=== PATIENT | female | born 1990 | race Caucasian/White ===

== ENCOUNTER 2021-11-22 16:56 | Inpatient (IN) | payer OTHER ==
[2021-11-22] MEDS ORDERED: diazePAM CARPU-JECT 10 MG/2 ML DISP.SYRIN IVPUSH ONE (17:54)
[2021-11-22] MEDS ORDERED: ACETAMINOPHEN 1000 MG/100 ML BAG IVPB ONE (17:58)
[2021-11-22] MEDS ORDERED: ONDANSETRON 4 MG/2 ML VIAL IVPUSH ONE (17:58)
[2021-11-22] MEDS ORDERED: LACTATED RINGERS SOLUTION 1000 ML INFUS.BAG IV ONE (18:11)
[2021-11-22] MEDS ORDERED: diazePAM CARPU-JECT 10 MG/2 ML DISP.SYRIN ONE (18:14)
[2021-11-22] MEDS ORDERED: ONDANSETRON 4 MG/2 ML VIAL ONE (18:15)
[2021-11-22] MEDS ORDERED: ACETAMINOPHEN INJECTION 100 ML IVPB ONE (18:15)
[2021-11-22] MEDS ORDERED: TRIMETHOBENZAMIDE HCL 200MG/2ML INJ IM ONE ×3 (18:35→21:16)
[2021-11-22] MEDS ORDERED: chlordiazePOXIDE HCL 25 MG CAPSULE PO ONE (19:20)
[2021-11-22] MEDS ORDERED: chlordiazePOXIDE HCL 25 MG CAPSULE ONE (19:32)
[2021-11-22 20:11] LABS: BASO % 0.3 % (0-2.0); EOS % 0.1 % (0-4.5); HEMATOCRIT 41.6 % (32.4-45.2); HEMOGLOBIN 14.1 GM/dL (10.7-15.3); LYMPH % 5.4 % (8-40); MCH 34.1 pg (25.7-33.7); MCHC 33.8 g/dl (32.0-36.0); MONO % 9.3 % (3.8-10.2); NEUT % 84.9 % (42.8-82.8); PLATELET COUNT 107 10^3/uL (134-434); RBC 4.12 M/mm3 (3.60-5.2); RDW 13.2 % (11.6-15.6); WHITE BLOOD COUNT 7.7 K/mm3 (4.0-10.0)
[2021-11-22 20:29] LABS: CHLORIDE 92 mmol/L (98-107); SODIUM 135 mmol/L (136-145)
[2021-11-22 20:31] LABS: CALCIUM 9.4 mg/dL (8.5-10.1)
[2021-11-22 20:32] LABS: ALBUMIN 4.8 g/dl (3.4-5.0); BLOOD UREA NITROGEN 9.4 mg/dL (7-18); CO2 28 mmol/L (21-32); GLUCOSE,RANDOM 84 mg/dL (74-106); MAGNESIUM 1.4 mg/dL (1.8-2.4)
[2021-11-22 20:35] LABS: CREATININE 0.6 mg/dL (0.55-1.3); SGOT/AST 187 U/L (15-37); SGPT/ALT 158 U/L (13-61)
[2021-11-22 20:37] LABS: BILIRUBIN,TOTAL 1.3 mg/dL (0.2-1); TOT PROT 8.8 g/dl (6.4-8.2)
[2021-11-22 20:38] LABS: ALK PHOS 106 U/L (45-117)
[2021-11-22 20:56] LABS: ANION GAP 15 MMOL/L (8-16); PHOSPHOROUS 1.1 mg/dL (2.5-4.9)
[2021-11-22] MEDS ORDERED: MAGNESIUM SULF 50% (8.12 MEQ/2 ML-1 GM VIAL) IVPB ONE (20:56)
[2021-11-22] MEDS ORDERED: POTASSIUM CHLORIDE TABS 10 MEQ TABLET.ER (FP) PO ONE (20:59)
[2021-11-22] MEDS ORDERED: NAPH,MB-DB/K PH,MBDB POWDER PACKET PO ONE (20:59)
[2021-11-22] MEDS ORDERED: MAGNESIUM SULFATE IN WATER 2 GM/50 ML IVPB IVPB ONE (21:04)
[2021-11-22 21:13] LABS: COCAINE, UR NEGATIVE (NEGATIVE)
[2021-11-22] MEDS ORDERED: POTASSIUM CHLORIDE TABS 10 MEQ TABLET.ER (FP) ONE (21:13)
[2021-11-22 21:14] LABS: METHADONE, UR NEGATIVE (NEGATIVE); PHENCYCLIDINE,URINE NEGATIVE (NEGATIVE); URINE BARBITURATES NEGATIVE (NEGATIVE)
[2021-11-22] MEDS ORDERED: NAPH,MB-DB/K PH,MBDB POWDER PACKET ONE (21:14)
[2021-11-22 21:18] LABS: OPIATES, URI NEGATIVE (NEGATIVE); URINE AMPHETAMINES NEGATIVE (NEGATIVE); URINE BENZODIAZEPINES POSITIVE (NEGATIVE)
[2021-11-22] MEDS: KCL 10 MEQ IVPB 10 MEQ/100 ML INFUS.BAG IVPB SCH ×3 (21:24→23:32)
[2021-11-22] MEDS ORDERED: KCL 10 MEQ IVPB 10 MEQ/100 ML INFUS.BAG IVPB ONE ×3 (21:25→23:26)
[2021-11-22] MEDS ORDERED: LORazepam 1 MG TABLET PO PRN (21:39)
[2021-11-22] MEDS ORDERED: FOLIC ACID INJECTION - 1 MG, THIAMINE HCL 100 MG in SODIUM CHLORIDE 998.8 ML IVPB ONE (21:39)
[2021-11-22] MEDS ORDERED: POTASSIUM PHOSPHATE 30 MM in DEXTROSE 5%-WATER - 500 ML IVPB ONE (21:50)
[2021-11-22] MEDS ORDERED: MULTIVITAMINS (DAILY MVI) TABLET (FP) PO ONE (22:30)
[2021-11-22] MEDS: LORazepam 1 MG TABLET PO SCH (23:24)
[2021-11-22] MEDS ORDERED: MULTIVITAMINS (DAILY MVI) TABLET (FP) ONE (23:26)
[2021-11-22] MEDS ORDERED: LORazepam 1 MG TABLET ONE (23:26)
[2021-11-23 01:36] LABS: BLOOD UREA NITROGEN 6.5 mg/dL (7-18); CALCIUM 8.7 mg/dL (8.5-10.1)
[2021-11-23 01:37] LABS: ALBUMIN 4.3 g/dl (3.4-5.0); MAGNESIUM 2.6 mg/dL (1.8-2.4)
[2021-11-23 01:40] LABS: CREATININE 0.4 mg/dL (0.55-1.3); PHOSPHOROUS 2.4 mg/dL (2.5-4.9)
[2021-11-23 01:41] LABS: BILIRUBIN,TOTAL 1.1 mg/dL (0.2-1)
[2021-11-23 01:57] VITALS: BMI 23.6
[2021-11-23 04:23] LABS: EPI CELLS 4 /uL (0-25.1); HYALINE CASTS 0 /uL (0-3.1); PH,URINE 7.5 (5.0-8.0); URINE APPEARANCE CLEAR; URINE BACTERIA 62 /uL (0-1359); URINE BILIRUBIN NEGATIVE (NEGATIVE); URINE COLOR YELLOW; URINE GLUCOSE (UA) NEGATIVE (NEGATIVE); URINE KETONE 1+ (NEGATIVE); URINE LEUK ESTERASE NEGATIVE (NEGATIVE); URINE NITRITE NEGATIVE (NEGATIVE); URINE PROTEIN 1+ (NEGATIVE); URINE RBC 3 /uL (0-23.9); URINE WBC 4 /uL (0-25.8)
[2021-11-23] MEDS: LORazepam 1 MG TABLET PO SCH ×4 (05:22→22:34)
[2021-11-23] MEDS ORDERED: POTASSIUM CHLORIDE TABS 20 MEQ TABLET.ER (FP) PO ONE ×2 (07:27→14:11)
[2021-11-23] MEDS ORDERED: POTASSIUM PHOSPHATE 30 MM in SODIUM CHLORIDE 250 ML IVPB ONE (07:28)
[2021-11-23] MEDS ORDERED: MAGNESIUM SULF 50% (8.12 MEQ/2 ML-1 GM VIAL) IVPB ONE (07:28)
[2021-11-23 08:12] LABS: BASO % 0.5 % (0-2.0); EOS % 0.9 % (0-4.5); HEMATOCRIT 37.8 % (32.4-45.2); HEMOGLOBIN 12.9 GM/dL (10.7-15.3); LYMPH % 18.4 % (8-40); MCH 34.6 pg (25.7-33.7); MCHC 34.2 g/dl (32.0-36.0); MEAN CELL VOLUME 101.1 fl (80-96); MONO % 13.8 % (3.8-10.2); NEUT % 66.4 % (42.8-82.8); PLATELET COUNT 94 10^3/uL (134-434); RBC 3.74 M/mm3 (3.60-5.2); WHITE BLOOD COUNT 4.5 K/mm3 (4.0-10.0)
[2021-11-23 08:39] LABS: CALCIUM 8.1 mg/dL (8.5-10.1)
[2021-11-23 08:40] LABS: ALBUMIN 3.6 g/dl (3.4-5.0); BLOOD UREA NITROGEN 4.6 mg/dL (7-18); MAGNESIUM 2.3 mg/dL (1.8-2.4)
[2021-11-23 08:42] LABS: PHOSPHOROUS 3.1 mg/dL (2.5-4.9)
[2021-11-23 08:43] LABS: CREATININE 0.3 mg/dL (0.55-1.3)
[2021-11-23 08:44] LABS: TOT PROT 6.9 g/dl (6.4-8.2)
[2021-11-23] MEDS ORDERED: ENOXAPARIN NA (PORCINE) 40 MG/0.4 ML DISP.SYRIN SQ SCH (10:00)
[2021-11-23] MEDS ORDERED: THIAMINE HCL 200 MG/2 ML VIAL IVPB SCH (10:00)
[2021-11-23] MEDS: FOLIC ACID 5 MG/1 ML IVPB SCH ×2 (12:17→15:53)
[2021-11-23 18:09] VITALS: RESP 18
[2021-11-23 20:47] LABS: CALCIUM 8.5 mg/dL (8.5-10.1)
[2021-11-23 20:50] LABS: CREATININE 0.4 mg/dL (0.55-1.3)
[2021-11-24] MEDS ORDERED: LORazepam 1 MG TABLET PO SCH (05:00)
[2021-11-24 08:02] LABS: HEMATOCRIT 38.6 % (32.4-45.2); HEMOGLOBIN 13.1 GM/dL (10.7-15.3); MCH 34.6 pg (25.7-33.7); MCHC 33.8 g/dl (32.0-36.0); MEAN CELL VOLUME 102.3 fl (80-96); MEAN PLT VOLUME 9.3 fl (7.5-11.1); PLATELET COUNT 119 10^3/uL (134-434); RBC 3.77 M/mm3 (3.60-5.2); WHITE BLOOD COUNT 5.4 K/mm3 (4.0-10.0)
[2021-11-24 08:22] LABS: ALBUMIN 4.1 g/dl (3.4-5.0); BLOOD UREA NITROGEN 3.4 mg/dL (7-18); PHOSPHOROUS 1.9 mg/dL (2.5-4.9)
[2021-11-24 08:23] LABS: TOT PROT 7.5 g/dl (6.4-8.2)
[2021-11-24 08:24] LABS: CALCIUM 9.1 mg/dL (8.5-10.1)
[2021-11-24 08:25] LABS: CREATININE 0.4 mg/dL (0.55-1.3)
[2021-11-24 09:44] VITALS: BP 145/109; PULSE 106; TEMP 98.9
[2021-11-24] MEDS ORDERED: cloNIDine HCL 0.1 MG TABLET PO SCH (10:00)
[2021-11-25] MEDS ORDERED: LORazepam 0.5 MG TABLET PO PRN
[2021-11-25] MEDS ORDERED: LORazepam 0.5 MG TABLET PO SCH (05:00)
[2021-11-26] MEDS ORDERED: LORazepam 0.5 MG TABLET PO ONE (05:00)
== END 2021-11-24 09:30 | disposition left against medical advice (07) | DRG 53 ==
LOC: JER 16:56 → JERBED 18:15 → J2W 11-23 00:33
PROVIDERS: ADMIT Internal Medicine; ATTEND Internal Medicine
DX: R56.9 Unspecified convulsions (principal); F10.230 Alcohol dependence with withdrawal, uncomplicated; E83.42 Hypomagnesemia; E87.6 Hypokalemia; E83.39 Other disorders of phosphorus metabolism; K76.0 Fatty (change of) liver, not elsewhere classified; Z53.29 Procedure and treatment not carried out because of patient's decision for other reasons
CPT/HCPCS: 0241U-QW; 36415; 71045-TC-FY; 76705-TC; 80048; 80053; 80307; 81003; 82962; 83605; 83690; 83735; 84100; 84443; 84703; 85025; 85027; 87040; 87086; 87186; 93005; 93010; 99285-25

== ENCOUNTER 2022-04-01 12:23 | Emergency (ER) | payer OTHER ==
[2022-04-01 12:27] VITALS: TEMP 98.9; BMI 23.6
[2022-04-01] MEDS ORDERED: THIAMINE HCL 200 MG/2 ML VIAL IVPB ONE (13:11)
[2022-04-01] MEDS ORDERED: LACTATED RINGERS SOLUTION 1,000 ML/1,000 ML INFUS.BAG IV SCH (13:15)
[2022-04-01] MEDS ORDERED: THIAMINE HCL 200 MG/2 ML VIAL ONE (13:17)
[2022-04-01] MEDS ORDERED: chlordiazePOXIDE HCL 25 MG CAPSULE PO ONE ×2 (13:26→14:31)
[2022-04-01] MEDS ORDERED: chlordiazePOXIDE HCL 25 MG CAPSULE ONE ×2 (13:42→14:41)
[2022-04-01 13:52] LABS: BASO % 1.4 % (0-2.0); EOS % 0.1 % (0-4.5); HEMATOCRIT 37.9 % (32.4-45.2); HEMOGLOBIN 13.1 GM/dL (10.7-15.3); LYMPH % 9.7 % (8-40); MCH 34.2 pg (25.7-33.7); MCHC 34.4 g/dl (32.0-36.0); MEAN CELL VOLUME 99.2 fl (80-96); MONO % 10.7 % (3.8-10.2); NEUT % 78.1 % (42.8-82.8); PLATELET COUNT 137 10^3/uL (134-434); RBC 3.82 M/mm3 (3.60-5.2); RDW 14.1 % (11.6-15.6)
[2022-04-01 14:00] LABS: INR 1.03 (0.83-1.09); PROTHROMBIN TIME (PATIENT) 11.9 SEC (9.7-13.0)
[2022-04-01 14:02] LABS: ACTIVATED PTT 36.4 SECONDS (25.2-36.5)
[2022-04-01 14:08] LABS: PHENCYCLIDINE,URINE NEGATIVE (NEGATIVE)
[2022-04-01 14:09] LABS: COCAINE, UR NEGATIVE (NEGATIVE); METHADONE, UR NEGATIVE (NEGATIVE); OPIATES, URI NEGATIVE (NEGATIVE); URINE BARBITURATES NEGATIVE (NEGATIVE)
[2022-04-01 14:14] LABS: ALBUMIN 3.9 g/dl (3.4-5.0); BLOOD UREA NITROGEN 8.4 mg/dL (7-18); CALCIUM 8.4 mg/dL (8.5-10.1); MAGNESIUM 1.4 mg/dL (1.8-2.4)
[2022-04-01 14:17] LABS: CREATININE 0.4 mg/dL (0.55-1.3); PHOSPHOROUS 2.7 mg/dL (2.5-4.9)
[2022-04-01 14:19] LABS: BILIRUBIN,TOTAL 0.7 mg/dL (0.2-1); TOT PROT 7.8 g/dl (6.4-8.2); URINE AMPHETAMINES NEGATIVE (NEGATIVE); URINE BENZODIAZEPINES POSITIVE (NEGATIVE)
[2022-04-01] MEDS ORDERED: MAGNESIUM SULFATE IN WATER 2 GM/50 ML IVPB IVPB ONE ×2 (14:41→15:12)
[2022-04-01 16:41] VITALS: BP 143/86; PULSE 85; RESP 20
== END 2022-04-01 16:42 | disposition home or self-care (01) ==
LOC: JER 12:23
PROC: 3E033GC Introduction of Other Therapeutic Substance into Peripheral Vein, Percutaneous Approach (ICD-10-PCS; principal; 2022-04-01)
DX: F10.230 Alcohol dependence with withdrawal, uncomplicated (principal); Z20.822 Contact with and (suspected) exposure to COVID-19; Y90.9 Presence of alcohol in blood, level not specified
CPT/HCPCS: 0241U-QW; 36415; 80053; 80307; 83735; 84100; 84703; 85025; 85610; 85730; 93005; 93010; 99284-25

== ENCOUNTER 2022-04-01 16:59 | Inpatient (IN) | payer OTHER ==
[2022-04-01 17:32] VITALS: BMI 23.6
[2022-04-01] MEDS ORDERED: IBUPROFEN 600 MG TABLET (FP) PO PRN (18:15)
[2022-04-01] MEDS ORDERED: POLYETHYLENE GLYCOL (HEALTHYLAX) 3350 17 GM PACKET PO PRN (18:15)
[2022-04-01] MEDS ORDERED: ONDANSETRON *ODT* 4 MG TABLET SL PRN (18:15)
[2022-04-01] MEDS ORDERED: NICOTINE 10 MG CARTRIDGE (INHALER) IH PRN (18:15)
[2022-04-01] MEDS ORDERED: MAGNESIUM HYDROX 2400MG/30ML ORAL SUSPENSION 30 ML CUP PO PRN (18:15)
[2022-04-01] MEDS ORDERED: LOPERAMIDE HCL 2 MG CAPSULE PO PRN (18:15)
[2022-04-01] MEDS ORDERED: BISMUTH SUBSALICYLATE 524 MG/30 ML PO PRN (18:15)
[2022-04-01] MEDS ORDERED: NALOXONE HCL (KLOXXADO) 8 MG SPRAY NS PRN (18:15)
[2022-04-01] MEDS ORDERED: DICYCLOMINE HCL 10 MG CAPSULE PO PRN (18:15)
[2022-04-01] MEDS ORDERED: BENZOCAINE/MENTHOL (CHLORASEPTIC ) LOZENGE MM PRN (18:15)
[2022-04-01] MEDS ORDERED: MAG HYDROX/AL HYDROX/SIMETH 30 ML UNIT-DOSE CUP PO PRN (18:15)
[2022-04-01] MEDS ORDERED: ACETAMINOPHEN 325 MG TABLET (FP) PO PRN ×2 (18:15)
[2022-04-01] MEDS ORDERED: IBUPROFEN 400 MG TABLET (FP) PO PRN (18:15)
[2022-04-01] MEDS ORDERED: cloNIDine HCL 0.1 MG TABLET PO ONE (18:21)
[2022-04-01] MEDS ORDERED: LORazepam 1 MG TABLET ONE (18:27)
[2022-04-01] MEDS ORDERED: cloNIDine HCL 0.1 MG TABLET ONE (18:28)
[2022-04-01] MEDS: LORazepam 1 MG TABLET PO PRN (18:33)
[2022-04-01] MEDS: METHOCARBAMOL 500 MG TABLET PO PRN (22:15)
[2022-04-01] MEDS: LORazepam 2 MG TABLET PO SCH (22:15)
[2022-04-01] MEDS: THIAMINE HCL 100 MG TABLET (FP) PO SCH (22:16)
[2022-04-01] MEDS: MELATONIN 5 MG TABLETS PO SCH (22:16)
[2022-04-01 22:30] LABS: URINE APPEARANCE CLEAR; URINE BILIRUBIN NEGATIVE (NEGATIVE); URINE COLOR YELLOW; URINE GLUCOSE (UA) NEGATIVE (NEGATIVE); URINE KETONE 1+ (NEGATIVE); URINE LEUK ESTERASE NEGATIVE (NEGATIVE); URINE NITRITE NEGATIVE (NEGATIVE); URINE PROTEIN TRACE (NEGATIVE)
[2022-04-02] MEDS: LORazepam 2 MG TABLET PO SCH ×4 (05:36→22:19)
[2022-04-02] MEDS: METHOCARBAMOL 500 MG TABLET PO PRN ×2 (05:36→22:20)
[2022-04-02] MEDS: hydrOXYzine PAMOATE 25 MG CAPSULE (FP) PO PRN (08:34)
[2022-04-02] MEDS: LORazepam 1 MG TABLET PO PRN (08:35)
[2022-04-02] MEDS ORDERED: cloNIDine HCL 0.1 MG TABLET PO ONE (09:30)
[2022-04-02] MEDS: PRENATAL VITAMINS W/ FOLIC ACID TABLET (FP) PO SCH (10:12)
[2022-04-02] MEDS: amLODIPine BESYLATE 5 MG TABLET (FP) PO SCH (10:12)
[2022-04-02] MEDS: THIAMINE HCL 100 MG TABLET (FP) PO SCH (22:18)
[2022-04-02] MEDS: MELATONIN 5 MG TABLETS PO SCH (22:18)
[2022-04-03] MEDS: LORazepam 1 MG TABLET PO SCH ×4 (05:36→22:26)
[2022-04-03] MEDS: hydrOXYzine PAMOATE 25 MG CAPSULE (FP) PO PRN ×2 (05:37→22:25)
[2022-04-03] MEDS: METHOCARBAMOL 500 MG TABLET PO PRN ×2 (05:38→22:25)
[2022-04-03] MEDS: PRENATAL VITAMINS W/ FOLIC ACID TABLET (FP) PO SCH (10:13)
[2022-04-03] MEDS: amLODIPine BESYLATE 5 MG TABLET (FP) PO SCH (10:13)
[2022-04-03 12:13] LABS: HEMATOCRIT 38.9 % (32.4-45.2); HEMOGLOBIN 13.3 GM/dL (10.7-15.3); MCH 34.2 pg (25.7-33.7); MCHC 34.1 g/dl (32.0-36.0); MEAN CELL VOLUME 100.3 fl (80-96); MEAN PLT VOLUME 8.8 fl (7.5-11.1); PLATELET COUNT 152 10^3/uL (134-434); RBC 3.88 M/mm3 (3.60-5.2); RDW 14.1 % (11.6-15.6); WHITE BLOOD COUNT 4.4 K/mm3 (4.0-10.0)
[2022-04-03 12:33] LABS: ALBUMIN 3.8 g/dl (3.4-5.0); BLOOD UREA NITROGEN 6.8 mg/dL (7-18)
[2022-04-03 12:36] LABS: CREATININE 0.5 mg/dL (0.55-1.3)
[2022-04-03 12:37] LABS: BILIRUBIN,TOTAL 1.1 mg/dL (0.2-1); TOT PROT 7.8 g/dl (6.4-8.2)
[2022-04-03 12:42] LABS: CALCIUM 9.8 mg/dL (8.5-10.1)
[2022-04-03] MEDS: MELATONIN 5 MG TABLETS PO SCH (22:25)
[2022-04-03] MEDS: THIAMINE HCL 100 MG TABLET (FP) PO SCH (22:25)
[2022-04-04] MEDS ORDERED: LORazepam 0.5 MG TABLET PO PRN
[2022-04-04] MEDS: LORazepam 0.5 MG TABLET PO SCH ×4 (05:53→22:30)
[2022-04-04] MEDS: amLODIPine BESYLATE 5 MG TABLET (FP) PO SCH (10:13)
[2022-04-04] MEDS: METHOCARBAMOL 500 MG TABLET PO PRN ×2 (10:13→22:31)
[2022-04-04] MEDS: PRENATAL VITAMINS W/ FOLIC ACID TABLET (FP) PO SCH (10:13)
[2022-04-04 15:11] LABS: PH,URINE 7.5 (5.0-8.0); URINE APPEARANCE CLEAR; URINE BILIRUBIN NEGATIVE (NEGATIVE); URINE COLOR YELLOW; URINE GLUCOSE (UA) NEGATIVE (NEGATIVE); URINE KETONE NEGATIVE (NEGATIVE); URINE LEUK ESTERASE NEGATIVE (NEGATIVE); URINE NITRITE NEGATIVE (NEGATIVE); URINE PROTEIN NEGATIVE (NEGATIVE)
[2022-04-04] MEDS: hydrOXYzine PAMOATE 25 MG CAPSULE (FP) PO PRN (17:35)
[2022-04-04] MEDS: THIAMINE HCL 100 MG TABLET (FP) PO SCH (22:30)
[2022-04-04] MEDS: MELATONIN 5 MG TABLETS PO SCH (22:30)
[2022-04-05] MEDS ORDERED: LORazepam 0.5 MG TABLET PO ONE (05:00)
[2022-04-05] MEDS: hydrOXYzine PAMOATE 25 MG CAPSULE (FP) PO PRN (05:34)
[2022-04-05 06:24] VITALS: RESP 18
[2022-04-05] MEDS: amLODIPine BESYLATE 5 MG TABLET (FP) PO SCH (09:26)
[2022-04-05] MEDS: PRENATAL VITAMINS W/ FOLIC ACID TABLET (FP) PO SCH (09:26)
[2022-04-05 09:48] VITALS: BP 146/104; PULSE 86; TEMP 98.2
== END 2022-04-05 11:34 | disposition home or self-care (01) | DRG 775 ==
LOC: YASAS 16:59 → Y3N 18:29
PROVIDERS: ADMIT Allergy & Immunology; ATTEND Surgery
PROC: HZ2ZZZZ Detoxification Services for Substance Abuse Treatment (ICD-10-PCS; principal; 2022-04-01)
DX: F10.230 Alcohol dependence with withdrawal, uncomplicated (principal); F51.05 Insomnia due to other mental disorder; I10 Essential (primary) hypertension; R74.8 Abnormal levels of other serum enzymes; Z86.69 Personal history of other diseases of the nervous system and sense organs
CPT/HCPCS: 36415; 80053; 81003; 81025; 82140; 85027; 86780; 93005; 93010; C9803-CS; U0003; U0005

== ENCOUNTER 2022-04-15 13:10 | Inpatient (IN) | payer OTHER ==
[2022-04-15] MEDS ORDERED: LORazepam 2 MG/ML SDV VIAL IVPUSH ONE ×2 (15:23→16:50)
[2022-04-15 16:21] LABS: BASO % 0.9 % (0-2.0); EOS % 0.1 % (0-4.5); HEMATOCRIT 40.6 % (32.4-45.2); HEMOGLOBIN 13.8 GM/dL (10.7-15.3); LYMPH % 9.7 % (8-40); MCHC 33.9 g/dl (32.0-36.0); MEAN CELL VOLUME 97.3 fl (80-96); MEAN PLT VOLUME 7.9 fl (7.5-11.1); MONO % 6.6 % (3.8-10.2); NEUT % 82.7 % (42.8-82.8); PLATELET COUNT 319 10^3/uL (134-434); RBC 4.17 M/mm3 (3.60-5.2); RDW 13.7 % (11.6-15.6); WHITE BLOOD COUNT 9.6 K/mm3 (4.0-10.0)
[2022-04-15 16:40] LABS: CHLORIDE 97 mmol/L (98-107); SODIUM 135 mmol/L (136-145)
[2022-04-15 16:42] LABS: ALBUMIN 4.3 g/dl (3.4-5.0); CALCIUM 8.9 mg/dL (8.5-10.1); LIPASE 123 U/L (73-393)
[2022-04-15 16:43] LABS: ANION GAP 10 MMOL/L (8-16); BLOOD UREA NITROGEN 7.3 mg/dL (7-18); CO2 28 mmol/L (21-32); GLUCOSE,RANDOM 84 mg/dL (74-106)
[2022-04-15 16:45] LABS: CREATININE 0.5 mg/dL (0.55-1.3); SGOT/AST 227 U/L (15-37); SGPT/ALT 250 U/L (13-61)
[2022-04-15 16:47] LABS: BILIRUBIN,TOTAL 0.9 mg/dL (0.2-1); TOT PROT 8.5 g/dl (6.4-8.2)
[2022-04-15 16:48] LABS: ALK PHOS 108 U/L (45-117)
[2022-04-15] MEDS ORDERED: LACTATED RINGERS SOLUTION 1000 ML INFUS.BAG IV ONE (16:50)
[2022-04-15] MEDS ORDERED: THIAMINE HCL 100 MG TABLET (FP) PO ONE (16:51)
[2022-04-15] MEDS ORDERED: FOLIC ACID 1 MG TABLET (FP) PO ONE (16:52)
[2022-04-15] MEDS ORDERED: MULTIVITAMINS (DAILY MVI) TABLET (FP) PO ONE (16:52)
[2022-04-15] MEDS ORDERED: ACETAMINOPHEN 1000 MG/100 ML BAG IVPB ONE (17:01)
[2022-04-15] MEDS ORDERED: FOLIC ACID 1 MG TABLET (FP) ONE (17:02)
[2022-04-15] MEDS ORDERED: THIAMINE HCL 100 MG TABLET (FP) ONE (17:02)
[2022-04-15] MEDS ORDERED: ACETAMINOPHEN 325 MG TABLET (FP) PO ONE (17:02)
[2022-04-15] MEDS ORDERED: MULTIVITAMINS (DAILY MVI) TABLET (FP) ONE (17:02)
[2022-04-15] MEDS ORDERED: ACETAMINOPHEN 325 MG TABLET (FP) ONE (17:06)
[2022-04-15 17:10] LABS: MAGNESIUM 1.6 mg/dL (1.8-2.4)
[2022-04-15] MEDS ORDERED: MAGNESIUM SULF 50% (8.12 MEQ/2 ML-1 GM VIAL) IVPB ONE (17:27)
[2022-04-15] MEDS ORDERED: MAGNESIUM SULFATE IN WATER 2 GM/50 ML IVPB IVPB ONE (17:36)
[2022-04-15] MEDS ORDERED: LORazepam 1 MG TABLET PO PRN (19:02)
[2022-04-15 20:32] VITALS: BMI 24.7
[2022-04-15 21:00] LABS: COCAINE, UR NEGATIVE (NEGATIVE); METHADONE, UR NEGATIVE (NEGATIVE); PHENCYCLIDINE,URINE NEGATIVE (NEGATIVE)
[2022-04-15 21:01] LABS: OPIATES, URI NEGATIVE (NEGATIVE); URINE AMPHETAMINES NEGATIVE (NEGATIVE); URINE BARBITURATES NEGATIVE (NEGATIVE); URINE BENZODIAZEPINES POSITIVE (NEGATIVE)
[2022-04-15] MEDS ORDERED: POTASSIUM CHLORIDE TABS 10 MEQ TABLET.ER (FP) PO ONE (21:01)
[2022-04-15] MEDS ORDERED: IBUPROFEN 400 MG TABLET (FP) PO ONE (21:04)
[2022-04-15] MEDS ORDERED: POTASSIUM CHLORIDE TABS 20 MEQ TABLET.ER (FP) PO ONE (21:15)
[2022-04-15] MEDS: FAMOTIDINE 20 MG/50 ML IVPB 20 MG/50 ML MG IVPB SCH (23:03)
[2022-04-15] MEDS: CARVEDILOL 3.125 MG TABLET (FP) PO SCH (23:04)
[2022-04-15] MEDS: MELATONIN 5 MG TABLETS PO PRN (23:05)
[2022-04-16] MEDS ORDERED: LORazepam 1 MG TABLET PO PRN (07:39)
[2022-04-16] MEDS ORDERED: LORazepam 2 MG/ML SDV VIAL IVPB PRN (07:40)
[2022-04-16 08:47] LABS: BASO % 1.1 % (0-2.0); EOS % 0.6 % (0-4.5); HEMATOCRIT 39.7 % (32.4-45.2); HEMOGLOBIN 13.5 GM/dL (10.7-15.3); LYMPH % 23.9 % (8-40); MCH 33.3 pg (25.7-33.7); MCHC 34.1 g/dl (32.0-36.0); MEAN CELL VOLUME 97.6 fl (80-96); MEAN PLT VOLUME 8.1 fl (7.5-11.1); MONO % 8.8 % (3.8-10.2); NEUT % 65.6 % (42.8-82.8); PLATELET COUNT 287 10^3/uL (134-434); RBC 4.06 M/mm3 (3.60-5.2); RDW 13.4 % (11.6-15.6); WHITE BLOOD COUNT 6.2 K/mm3 (4.0-10.0)
[2022-04-16 08:57] LABS: BLOOD UREA NITROGEN 13.7 mg/dL (7-18); CALCIUM 9.1 mg/dL (8.5-10.1)
[2022-04-16 08:58] LABS: ALBUMIN 3.9 g/dl (3.4-5.0); MAGNESIUM 2.3 mg/dL (1.8-2.4)
[2022-04-16 09:01] LABS: CREATININE 0.6 mg/dL (0.55-1.3)
[2022-04-16 09:02] LABS: BILIRUBIN,TOTAL 1.5 mg/dL (0.2-1)
[2022-04-16] MEDS: chlordiazePOXIDE HCL 25 MG CAPSULE PO SCH ×4 (10:04→22:18)
[2022-04-16] MEDS: CARVEDILOL 3.125 MG TABLET (FP) PO SCH ×2 (10:05→22:17)
[2022-04-16] MEDS: IBUPROFEN 400 MG TABLET (FP) PO PRN (10:05)
[2022-04-16] MEDS: FAMOTIDINE 20 MG/50 ML IVPB 20 MG/50 ML MG IVPB SCH ×2 (10:06→22:17)
[2022-04-16] MEDS: MELATONIN 5 MG TABLETS PO PRN (22:18)
[2022-04-17] MEDS: chlordiazePOXIDE HCL 25 MG CAPSULE PO SCH ×2 (05:41→10:56)
[2022-04-17] MEDS: IBUPROFEN 400 MG TABLET (FP) PO PRN (06:41)
[2022-04-17 06:42] VITALS: RESP 20
[2022-04-17 07:49] LABS: BASO % 0.8 % (0-2.0); EOS % 1.1 % (0-4.5); HEMATOCRIT 39.9 % (32.4-45.2); HEMOGLOBIN 13.6 GM/dL (10.7-15.3); LYMPH % 21.1 % (8-40); MCH 33.2 pg (25.7-33.7); MEAN CELL VOLUME 97.8 fl (80-96); MEAN PLT VOLUME 8.4 fl (7.5-11.1); MONO % 7.7 % (3.8-10.2); NEUT % 69.3 % (42.8-82.8); PLATELET COUNT 226 10^3/uL (134-434); RBC 4.08 M/mm3 (3.60-5.2); WHITE BLOOD COUNT 7.3 K/mm3 (4.0-10.0)
[2022-04-17 08:17] LABS: BLOOD UREA NITROGEN 7.4 mg/dL (7-18); CALCIUM 9.4 mg/dL (8.5-10.1)
[2022-04-17 08:20] LABS: CREATININE 0.6 mg/dL (0.55-1.3)
[2022-04-17 08:21] LABS: PHOSPHOROUS 2.8 mg/dL (2.5-4.9)
[2022-04-17 08:22] LABS: TOT PROT 7.8 g/dl (6.4-8.2)
[2022-04-17] MEDS ORDERED: ENOXAPARIN NA (PORCINE) 40 MG/0.4 ML DISP.SYRIN SQ SCH (10:00)
[2022-04-17] MEDS: FAMOTIDINE 20 MG/50 ML IVPB 20 MG/50 ML MG IVPB SCH (10:47)
[2022-04-17] MEDS: CARVEDILOL 3.125 MG TABLET (FP) PO SCH (10:56)
[2022-04-17 11:03] VITALS: TEMP 97.9
[2022-04-17 11:39] VITALS: BP 143/82; PULSE 82
[2022-04-18] MEDS ORDERED: chlordiazePOXIDE HCL 10 MG CAPSULE PO SCH (05:00)
[2022-04-19] MEDS ORDERED: chlordiazePOXIDE HCL 10 MG CAPSULE PO SCH (05:00)
[2022-04-20] MEDS ORDERED: chlordiazePOXIDE HCL 10 MG CAPSULE PO ONE (05:00)
== END 2022-04-17 12:45 | disposition other institution (70) | DRG 775 ==
LOC: JER 13:10 → JERBED 17:49 → OBSVTOIN 17:49 → J7W 20:13
PROVIDERS: ADMIT Internal Medicine; ATTEND Internal Medicine
DX: F10.230 Alcohol dependence with withdrawal, uncomplicated (principal); E83.42 Hypomagnesemia; I10 Essential (primary) hypertension; R74.01 Elevation of levels of liver transaminase levels; K70.10 Alcoholic hepatitis without ascites; R79.89 Other specified abnormal findings of blood chemistry; R25.1 Tremor, unspecified
CPT/HCPCS: 0241U-QW; 36415; 80053; 80307; 82550; 83690; 83735; 84100; 84484; 85025; 93005; 93010; 97116-GP; 97161-GP; 99285-25

== ENCOUNTER 2022-04-17 13:23 | Inpatient (IN) | payer OTHER ==
[2022-04-17 15:16] VITALS: RESP 16; BMI 24.9
[2022-04-17] MEDS ORDERED: LOPERAMIDE HCL 2 MG CAPSULE PO PRN (16:19)
[2022-04-17] MEDS ORDERED: MAG HYDROX/AL HYDROX/SIMETH 30 ML UNIT-DOSE CUP PO PRN (16:19)
[2022-04-17] MEDS ORDERED: IBUPROFEN 600 MG TABLET (FP) PO PRN (16:19)
[2022-04-17] MEDS ORDERED: IBUPROFEN 400 MG TABLET (FP) PO PRN (16:19)
[2022-04-17] MEDS ORDERED: ONDANSETRON *ODT* 4 MG TABLET SL PRN (16:19)
[2022-04-17] MEDS ORDERED: POLYETHYLENE GLYCOL (HEALTHYLAX) 3350 17 GM PACKET PO PRN (16:19)
[2022-04-17] MEDS ORDERED: NALOXONE HCL 0.4 MG/ML VIAL IM PRN (16:19)
[2022-04-17] MEDS ORDERED: BENZOCAINE/MENTHOL (CHLORASEPTIC ) LOZENGE MM PRN (16:19)
[2022-04-17] MEDS ORDERED: MAGNESIUM HYDROX 2400MG/30ML ORAL SUSPENSION 30 ML CUP PO PRN (16:19)
[2022-04-17] MEDS ORDERED: METHOCARBAMOL 500 MG TABLET PO PRN (16:19)
[2022-04-17] MEDS ORDERED: hydrOXYzine PAMOATE 25 MG CAPSULE (FP) PO PRN (16:19)
[2022-04-17] MEDS ORDERED: BENZONATATE 200 MG CAPSULE PO PRN (16:19)
[2022-04-17] MEDS ORDERED: BISMUTH SUBSALICYLATE 524 MG/30 ML PO PRN (16:19)
[2022-04-17] MEDS ORDERED: guaiFENesin 600 MG TABLET.ER (FP) PO PRN (16:19)
[2022-04-17] MEDS ORDERED: NALOXONE HCL (KLOXXADO) 8 MG SPRAY NS PRN (16:19)
[2022-04-17] MEDS ORDERED: ACETAMINOPHEN 325 MG TABLET (FP) PO PRN (16:19)
[2022-04-17] MEDS ORDERED: DICYCLOMINE HCL 10 MG CAPSULE PO PRN (16:19)
[2022-04-17] MEDS ORDERED: chlordiazePOXIDE HCL 10 MG CAPSULE PO SCH ×2 (16:45→22:00)
[2022-04-17] MEDS ORDERED: chlordiazePOXIDE HCL 25 MG CAPSULE PO SCH (17:00)
[2022-04-17] MEDS ORDERED: chlordiazePOXIDE HCL 25 MG CAPSULE ONE (18:27)
[2022-04-17 19:55] VITALS: BP 152/103; PULSE 86; TEMP 98.2
[2022-04-17] MEDS ORDERED: MELATONIN 5 MG TABLETS PO SCH (22:00)
[2022-04-17] MEDS ORDERED: THIAMINE HCL 100 MG TABLET (FP) PO SCH (22:00)
[2022-04-18] MEDS ORDERED: PRENATAL VITAMINS W/ FOLIC ACID TABLET (FP) PO SCH (10:00)
[2022-04-19] MEDS ORDERED: chlordiazePOXIDE HCL 10 MG CAPSULE PO SCH (05:00)
[2022-04-20] MEDS ORDERED: chlordiazePOXIDE HCL 10 MG CAPSULE PO PRN
[2022-04-21] MEDS ORDERED: chlordiazePOXIDE HCL 10 MG CAPSULE PO ONE (05:00)
== END 2022-04-17 20:30 | disposition left against medical advice (07) | DRG 770 ==
LOC: YASAS 13:23 → Y6N 16:51
PROVIDERS: ADMIT Allergy & Immunology; ATTEND Surgery
PROC: HZ2ZZZZ Detoxification Services for Substance Abuse Treatment (ICD-10-PCS; principal; 2022-04-17)
DX: F10.230 Alcohol dependence with withdrawal, uncomplicated (principal); I10 Essential (primary) hypertension; Z87.891 Personal history of nicotine dependence
CPT/HCPCS: 81025; C9803-CS; U0003; U0005

== ENCOUNTER 2022-04-17 22:57 | Emergency (ER) | payer OTHER ==
[2022-04-17 23:07] VITALS: BP 141/98; PULSE 91; RESP 20; TEMP 98.2; BMI 24.5
[2022-04-18 01:17] LABS: BASO % 0.5 % (0-2.0); EOS % 0.3 % (0-4.5); HEMATOCRIT 39.2 % (32.4-45.2); HEMOGLOBIN 13.5 GM/dL (10.7-15.3); LYMPH % 13.5 % (8-40); MCH 33.4 pg (25.7-33.7); MCHC 34.3 g/dl (32.0-36.0); MEAN CELL VOLUME 97.3 fl (80-96); MEAN PLT VOLUME 8.7 fl (7.5-11.1); MONO % 6.4 % (3.8-10.2); NEUT % 79.3 % (42.8-82.8); PLATELET COUNT 211 10^3/uL (134-434); RBC 4.03 M/mm3 (3.60-5.2); WHITE BLOOD COUNT 9.8 K/mm3 (4.0-10.0)
[2022-04-18 01:31] LABS: EPI CELLS 24 /uL (0-25.1); HYALINE CASTS 1 /uL (0-3.1); PH,URINE 5.5 (5.0-8.0); URINE APPEARANCE CLEAR; URINE BACTERIA 661 /uL (0-1359); URINE BILIRUBIN NEGATIVE (NEGATIVE); URINE COLOR YELLOW; URINE GLUCOSE (UA) NEGATIVE (NEGATIVE); URINE KETONE TRACE (NEGATIVE); URINE LEUK ESTERASE TRACE (NEGATIVE); URINE NITRITE NEGATIVE (NEGATIVE); URINE PROTEIN 1+ (NEGATIVE); URINE RBC 6 /uL (0-23.9); URINE WBC 23 /uL (0-25.8)
[2022-04-18 01:57] LABS: BLOOD UREA NITROGEN 10.3 mg/dL (7-18)
[2022-04-18 01:58] LABS: ALBUMIN 4.4 g/dl (3.4-5.0)
[2022-04-18 02:04] LABS: CREATININE 0.5 mg/dL (0.55-1.3); TOT PROT 8.3 g/dl (6.4-8.2)
[2022-04-18 02:29] LABS: BILIRUBIN,TOTAL 0.8 mg/dL (0.2-1)
== END 2022-04-18 01:17 | disposition left against medical advice (07) ==
LOC: JER 22:57
DX: F10.10 Alcohol abuse, uncomplicated (principal); F10.29 Alcohol dependence with unspecified alcohol-induced disorder; Y90.8 Blood alcohol level of 240 mg/100 ml or more
CPT/HCPCS: 36415; 80053; 80307; 81003; 85025; 87077; 87086; 99284-25

== ENCOUNTER 2022-07-17 11:23 | Emergency (ER) | payer OTHER ==
[2022-07-17 11:44] VITALS: PULSE 91; BMI 24.1
[2022-07-17 14:05] LABS: BASO % 0.7 % (0-2.0); HEMATOCRIT 37.3 % (32.4-45.2); HEMOGLOBIN 12.4 GM/dL (10.7-15.3); LYMPH % 36.5 % (8-40); MCHC 33.1 g/dl (32.0-36.0); MEAN CELL VOLUME 93.7 fl (80-96); MEAN PLT VOLUME 8.3 fl (7.5-11.1); MONO % 11.2 % (3.8-10.2); NEUT % 51.6 % (42.8-82.8); PLATELET COUNT 165 10^3/uL (134-434); RBC 3.98 M/mm3 (3.60-5.2); WHITE BLOOD COUNT 4.1 K/mm3 (4.0-10.0)
[2022-07-17 14:24] LABS: POTASSIUM 3.6 mmol/L (3.5-5.1)
[2022-07-17 14:26] LABS: CALCIUM 8.7 mg/dL (8.5-10.1)
[2022-07-17 14:27] LABS: BLOOD UREA NITROGEN 7.9 mg/dL (7-18)
[2022-07-17 14:30] LABS: CREATININE 0.5 mg/dL (0.55-1.3)
[2022-07-17 14:32] LABS: BILIRUBIN,TOTAL 0.2 mg/dL (0.2-1); TOT PROT 7.3 g/dl (6.4-8.2)
[2022-07-17 15:50] LABS: PH,URINE 6.5 (5.0-8.0); URINE APPEARANCE CLEAR; URINE BILIRUBIN NEGATIVE (NEGATIVE); URINE COLOR YELLOW; URINE GLUCOSE (UA) NEGATIVE (NEGATIVE); URINE KETONE NEGATIVE (NEGATIVE); URINE LEUK ESTERASE NEGATIVE (NEGATIVE); URINE NITRITE NEGATIVE (NEGATIVE); URINE PROTEIN NEGATIVE (NEGATIVE); URINE UROBILINOGEN 0.2 mg/dL (0.2-1.0)
[2022-07-17 16:00] VITALS: BP 150/95; RESP 19; TEMP 98.2
[2022-07-17 16:15] LABS: METHADONE, UR NEGATIVE (NEGATIVE); PHENCYCLIDINE,URINE NEGATIVE (NEGATIVE); URINE AMPHETAMINES NEGATIVE (NEGATIVE); URINE BENZODIAZEPINES NEGATIVE (NEGATIVE)
[2022-07-17 16:16] LABS: COCAINE, UR NEGATIVE (NEGATIVE); OPIATES, URI NEGATIVE (NEGATIVE)
[2022-07-17 17:01] LABS: URINE BARBITURATES NEGATIVE (NEGATIVE)
== END 2022-07-17 16:10 | disposition home or self-care (01) ==
LOC: JER 11:23
DX: F10.220 Alcohol dependence with intoxication, uncomplicated (principal); Z20.822 Contact with and (suspected) exposure to COVID-19; Y90.8 Blood alcohol level of 240 mg/100 ml or more
CPT/HCPCS: 36415; 80053; 80307; 81003; 83735; 84703; 85025; 87086; 87635; 99283-25

== ENCOUNTER 2022-09-06 19:01 | Emergency (ER) | payer OTHER ==
[2022-09-06 19:16] VITALS: RESP 18; BMI 23.0
[2022-09-06 20:43] LABS: BASO % 0.5 % (0-2.0); EOS % 0.1 % (0-4.5); HEMATOCRIT 38.4 % (32.4-45.2); HEMOGLOBIN 13.3 GM/dL (10.7-15.3); LYMPH % 16.4 % (8-40); MCH 31.7 pg (25.7-33.7); MCHC 34.7 g/dl (32.0-36.0); MEAN CELL VOLUME 91.5 fl (80-96); MONO % 14.1 % (3.8-10.2); NEUT % 68.9 % (42.8-82.8); RBC 4.19 M/mm3 (3.60-5.2); RDW 14.6 % (11.6-15.6); WHITE BLOOD COUNT 5.1 K/mm3 (4.0-10.0)
[2022-09-06 20:49] LABS: EPI CELLS >36 /uL (0-25.1); HYALINE CASTS 0 /uL (0-3.1); URINE APPEARANCE CLOUDY; URINE BACTERIA 3711 /uL (0-1359); URINE BILIRUBIN NEGATIVE (NEGATIVE); URINE COLOR YELLOW; URINE GLUCOSE (UA) NEGATIVE (NEGATIVE); URINE KETONE NEGATIVE (NEGATIVE); URINE LEUK ESTERASE NEGATIVE (NEGATIVE); URINE NITRITE NEGATIVE (NEGATIVE); URINE PROTEIN 1+ (NEGATIVE); URINE RBC 9 /uL (0-23.9); URINE UROBILINOGEN 0.2 mg/dL (0.2-1.0); URINE WBC 27 /uL (0-25.8)
[2022-09-06 20:50] LABS: HCG,QUALITATIVE URINE Negative
[2022-09-06 20:53] LABS: METHADONE, UR NEGATIVE (NEGATIVE); PHENCYCLIDINE,URINE NEGATIVE (NEGATIVE); URINE BENZODIAZEPINES NEGATIVE (NEGATIVE)
[2022-09-06 20:54] LABS: OPIATES, URI NEGATIVE (NEGATIVE)
[2022-09-06] MEDS ORDERED: LORazepam 2 MG TABLET PO ONE (20:54)
[2022-09-06 21:03] LABS: POTASSIUM 3.1 mmol/L (3.5-5.1)
[2022-09-06] MEDS ORDERED: POTASSIUM CHLORIDE TABS 20 MEQ TABLET.ER (FP) PO ONE ×2 (21:05→21:11)
[2022-09-06 21:06] LABS: BLOOD UREA NITROGEN 7.2 mg/dL (7-18); CALCIUM 8.1 mg/dL (8.5-10.1)
[2022-09-06 21:09] LABS: CREATININE 0.6 mg/dL (0.55-1.3)
[2022-09-06 21:10] LABS: BILIRUBIN,TOTAL 0.4 mg/dL (0.2-1); TOT PROT 7.8 g/dl (6.4-8.2)
[2022-09-06 21:11] LABS: MEAN PLT VOLUME 7.9 fl (7.5-11.1); PLATELET COUNT 69 10^3/uL (134-434); PLATELET ESTIMATE DECREASED
[2022-09-06] MEDS ORDERED: LORazepam 1 MG TABLET ONE (21:12)
[2022-09-06 21:17] LABS: COCAINE, UR NEGATIVE (NEGATIVE); URINE AMPHETAMINES NEGATIVE (NEGATIVE); URINE BARBITURATES NEGATIVE (NEGATIVE)
[2022-09-06 21:49] LABS: MAGNESIUM 1.7 mg/dL (1.8-2.4)
[2022-09-07] MEDS ORDERED: ONDANSETRON *ODT* 4 MG TABLET SL ONE ×2 (01:51→10:10)
[2022-09-07] MEDS ORDERED: ONDANSETRON *ODT* 4 MG TABLET ONE ×2 (01:54→10:35)
[2022-09-07] MEDS ORDERED: hydrOXYzine HCL 100 MG/2 ML VIAL IM ONE (04:03)
[2022-09-07] MEDS ORDERED: hydrOXYzine HCL 50 MG/ML VIAL IM ONE (04:07)
[2022-09-07 09:25] VITALS: BP 138/91; PULSE 97; TEMP 98.9
[2022-09-07] MEDS ORDERED: chlordiazePOXIDE HCL 25 MG CAPSULE PO ONE (10:23)
[2022-09-07] MEDS ORDERED: chlordiazePOXIDE HCL 25 MG CAPSULE ONE (10:35)
== END 2022-09-07 13:10 | disposition home or self-care (01) ==
LOC: JER 19:01
PROC: 3E023GC Introduction of Other Therapeutic Substance into Muscle, Percutaneous Approach (ICD-10-PCS; principal; 2022-09-07)
DX: R45.851 Suicidal ideations (principal); F10.220 Alcohol dependence with intoxication, uncomplicated
CPT/HCPCS: 36415; 76705-TC; 80053; 80307; 81003; 83690; 83735; 84443; 84703; 85025; 87635; 93005; 93010; 99285-25; Q0162

== ENCOUNTER 2022-09-07 15:26 | Inpatient (IN) | payer OTHER ==
[2022-09-07 16:41] VITALS: BMI 22.6
[2022-09-07] MEDS ORDERED: BISMUTH SUBSALICYLATE 524 MG/30 ML PO PRN (18:06)
[2022-09-07] MEDS ORDERED: MAGNESIUM HYDROX 2400MG/30ML ORAL SUSPENSION 30 ML CUP PO PRN (18:06)
[2022-09-07] MEDS ORDERED: LOPERAMIDE HCL 2 MG CAPSULE PO PRN (18:06)
[2022-09-07] MEDS ORDERED: guaiFENesin 600 MG TABLET.ER (FP) PO PRN (18:06)
[2022-09-07] MEDS ORDERED: MAG HYDROX/AL HYDROX/SIMETH 30 ML UNIT-DOSE CUP PO PRN (18:06)
[2022-09-07] MEDS ORDERED: BENZOCAINE/MENTHOL (CHLORASEPTIC ) LOZENGE MM PRN (18:06)
[2022-09-07] MEDS ORDERED: ACETAMINOPHEN 325 MG TABLET (FP) PO PRN (18:06)
[2022-09-07] MEDS ORDERED: BENZONATATE 200 MG CAPSULE PO PRN (18:06)
[2022-09-07] MEDS ORDERED: IBUPROFEN 400 MG TABLET (FP) PO PRN (18:06)
[2022-09-07] MEDS ORDERED: chlordiazePOXIDE HCL 25 MG CAPSULE PO PRN (18:06)
[2022-09-07] MEDS ORDERED: IBUPROFEN 600 MG TABLET (FP) PO PRN (18:06)
[2022-09-07] MEDS ORDERED: DICYCLOMINE HCL 10 MG CAPSULE PO PRN (18:06)
[2022-09-07] MEDS ORDERED: ONDANSETRON *ODT* 4 MG TABLET SL PRN (18:06)
[2022-09-07] MEDS ORDERED: P-EPHED 60MG/TRIPROLIDI 2.5MG TABLET PO PRN (18:06)
[2022-09-07] MEDS ORDERED: METHOCARBAMOL 500 MG TABLET PO PRN (18:06)
[2022-09-07] MEDS ORDERED: POLYETHYLENE GLYCOL (HEALTHYLAX) 3350 17 GM PACKET PO PRN (18:06)
[2022-09-07] MEDS ORDERED: chlordiazePOXIDE HCL 25 MG CAPSULE PO ONE (19:00)
[2022-09-07] MEDS ORDERED: chlordiazePOXIDE HCL 25 MG CAPSULE ONE (19:59)
[2022-09-07] MEDS ORDERED: POTASSIUM CHLORIDE TABS 20 MEQ TABLET.ER (FP) PO ONE (22:00)
[2022-09-07] MEDS ORDERED: MELATONIN 5 MG TABLETS PO SCH (22:00)
[2022-09-07] MEDS: THIAMINE HCL 100 MG TABLET (FP) PO SCH (22:28)
[2022-09-07] MEDS: chlordiazePOXIDE HCL 25 MG CAPSULE PO SCH (22:29)
[2022-09-07] MEDS ORDERED: METOPROLOL TARTRATE 25 MG TABLET (FP) PO ONE (23:15)
[2022-09-08] MEDS: chlordiazePOXIDE HCL 25 MG CAPSULE PO SCH ×4 (05:57→22:14)
[2022-09-08] MEDS: hydrOXYzine PAMOATE 25 MG CAPSULE (FP) PO PRN ×2 (05:58→17:31)
[2022-09-08] MEDS ORDERED: cloNIDine HCL 0.1 MG TABLET PO ONE (09:00)
[2022-09-08] MEDS: PRENATAL VITAMINS W/ FOLIC ACID TABLET (FP) PO SCH (10:03)
[2022-09-08] MEDS: amLODIPine BESYLATE 5 MG TABLET (FP) PO SCH (10:03)
[2022-09-08] MEDS ORDERED: SUVOREXANT 5 MG TABLET PO PRN (22:00)
[2022-09-08] MEDS: THIAMINE HCL 100 MG TABLET (FP) PO SCH (22:13)
[2022-09-09] MEDS: chlordiazePOXIDE HCL 25 MG CAPSULE PO SCH ×3 (05:17→17:15)
[2022-09-09] MEDS: amLODIPine BESYLATE 5 MG TABLET (FP) PO SCH (10:16)
[2022-09-09] MEDS: PRENATAL VITAMINS W/ FOLIC ACID TABLET (FP) PO SCH (10:16)
[2022-09-09] MEDS: hydrOXYzine PAMOATE 25 MG CAPSULE (FP) PO PRN ×2 (10:16→19:26)
[2022-09-09 18:32] VITALS: BP 128/88; PULSE 85; RESP 20; TEMP 97.7
[2022-09-10] MEDS ORDERED: chlordiazePOXIDE HCL 10 MG CAPSULE PO PRN
[2022-09-10] MEDS ORDERED: chlordiazePOXIDE HCL 10 MG CAPSULE PO SCH (05:00)
[2022-09-11] MEDS ORDERED: chlordiazePOXIDE HCL 10 MG CAPSULE PO SCH (05:00)
[2022-09-11 11:16] LABS: BILIRUBIN,DIRECT 0.2 mg/dL (0.0-0.2)
[2022-09-11 11:18] LABS: BILIRUBIN,TOTAL 0.5 mg/dL (0.2-1); TOT PROT 7.4 g/dl (6.4-8.2)
[2022-09-11 11:19] LABS: ALK PHOS 84 U/L (45-117)
[2022-09-11 11:59] LABS: SGPT/ALT 262 U/L (13-61)
[2022-09-12] MEDS ORDERED: chlordiazePOXIDE HCL 10 MG CAPSULE PO ONE (05:00)
== END 2022-09-09 20:37 | disposition left against medical advice (07) | DRG 770 ==
LOC: YASAS 15:26 → Y3N 19:47
PROVIDERS: ADMIT Allergy & Immunology; ATTEND Surgery
PROC: HZ2ZZZZ Detoxification Services for Substance Abuse Treatment (ICD-10-PCS; principal; 2022-09-07)
DX: F10.230 Alcohol dependence with withdrawal, uncomplicated (principal); F19.982 Other psychoactive substance use, unspecified with psychoactive substance-induced sleep disorder; I10 Essential (primary) hypertension; G47.00 Insomnia, unspecified; R00.0 Tachycardia, unspecified; Z86.69 Personal history of other diseases of the nervous system and sense organs; Z62.810 Personal history of physical and sexual abuse in childhood; Z56.0 Unemployment, unspecified
CPT/HCPCS: 36415; 80076; 81025; 84132

== ENCOUNTER 2023-01-11 14:05 | Inpatient (IN) | payer SELFPAY ==
[2023-01-11 14:43] VITALS: BMI 22.8
[2023-01-11] MEDS ORDERED: diazePAM CARPU-JECT 10 MG/2 ML DISP.SYRIN IVPUSH ONE (14:50)
[2023-01-11] MEDS ORDERED: THIAMINE HCL 200 MG/2 ML VIAL IVPB ONE (14:52)
[2023-01-11] MEDS ORDERED: diazePAM CARPU-JECT 10 MG/2 ML DISP.SYRIN ONE (14:53)
[2023-01-11] MEDS ORDERED: LACTATED RINGERS SOLUTION 1000 ML INFUS.BAG IV ONE ×2 (14:56→16:09)
[2023-01-11] MEDS ORDERED: THIAMINE HCL 200 MG/2 ML VIAL ONE (15:05)
[2023-01-11 15:25] LABS: BASO % 0.2 % (0-2.0); EOS % 0.3 % (0-4.5); HEMATOCRIT 45.9 % (32.4-45.2); HEMOGLOBIN 15.8 GM/dL (10.7-15.3); LYMPH % 14.3 % (8-40); MCH 32.4 pg (25.7-33.7); MCHC 34.4 g/dl (32.0-36.0); MEAN CELL VOLUME 94.3 fl (80-96); MEAN PLT VOLUME 9.9 fl (7.5-11.1); MONO % 10.7 % (3.8-10.2); NEUT % 74.5 % (42.8-82.8); PLATELET COUNT 65 10^3/uL (134-434); RBC 4.86 M/mm3 (3.60-5.2); RDW 14.3 % (11.6-15.6); WHITE BLOOD COUNT 9.3 K/mm3 (4.0-10.0)
[2023-01-11 15:46] LABS: POTASSIUM 3.9 mmol/L (3.5-5.1)
[2023-01-11 15:48] LABS: CALCIUM 9.6 mg/dL (8.5-10.1)
[2023-01-11 15:49] LABS: ALBUMIN 4.7 g/dl (3.4-5.0); BLOOD UREA NITROGEN 20.3 mg/dL (7-18); MAGNESIUM 1.7 mg/dL (1.8-2.4)
[2023-01-11 15:53] LABS: BILIRUBIN,TOTAL 1.6 mg/dL (0.2-1)
[2023-01-11] MEDS ORDERED: chlordiazePOXIDE HCL 25 MG CAPSULE PO ONE ×2 (16:09→16:16)
[2023-01-11] MEDS ORDERED: MAGNESIUM SULFATE IN WATER 2 GM/50 ML IVPB IVPB ONE ×2 (16:10→16:49)
[2023-01-11] MEDS ORDERED: chlordiazePOXIDE HCL 25 MG CAPSULE ONE (16:49)
[2023-01-11] MEDS ORDERED: FOLIC ACID INJECTION - 1 MG, THIAMINE HCL 100 MG, MULTIVIT INJECTION ADULT 10 ML in SOD... IVPB ONE (20:32)
[2023-01-11] MEDS ORDERED: ONDANSETRON 4 MG/2 ML VIAL IVPB PRN (20:34)
[2023-01-11] MEDS: chlordiazePOXIDE HCL 25 MG CAPSULE PO SCH ×2 (21:47→23:50)
[2023-01-12 00:23] VITALS: RESP 20
[2023-01-12] MEDS ORDERED: MELATONIN 5 MG TABLETS PO PRN (02:05)
[2023-01-12 05:54] VITALS: BP 146/94; PULSE 95; TEMP 97.8
[2023-01-12] MEDS: chlordiazePOXIDE HCL 25 MG CAPSULE PO SCH (06:16)
[2023-01-12 08:04] LABS: BASO % 0.6 % (0-2.0); EOS % 0.8 % (0-4.5); HEMATOCRIT 37.8 % (32.4-45.2); HEMOGLOBIN 12.9 GM/dL (10.7-15.3); LYMPH % 24.5 % (8-40); MCH 32.6 pg (25.7-33.7); MCHC 34.1 g/dl (32.0-36.0); MEAN CELL VOLUME 95.7 fl (80-96); MEAN PLT VOLUME 9.8 fl (7.5-11.1); MONO % 9.6 % (3.8-10.2); NEUT % 64.5 % (42.8-82.8); PLATELET COUNT 56 10^3/uL (134-434); RBC 3.95 M/mm3 (3.60-5.2); RDW 14.1 % (11.6-15.6); WHITE BLOOD COUNT 6.3 K/mm3 (4.0-10.0)
[2023-01-12 08:13] LABS: CHLORIDE 92 mmol/L (98-107); SODIUM 134 mmol/L (136-145)
[2023-01-12 08:15] LABS: CALCIUM 8.7 mg/dL (8.5-10.1)
[2023-01-12 08:16] LABS: ALBUMIN 3.8 g/dl (3.4-5.0); BLOOD UREA NITROGEN 11.1 mg/dL (7-18); CO2 30 mmol/L (21-32); GLUCOSE,RANDOM 76 mg/dL (74-106)
[2023-01-12 08:18] LABS: CREATININE 0.5 mg/dL (0.55-1.3); SGOT/AST 143 U/L (15-37); SGPT/ALT 98 U/L (13-61)
[2023-01-12 08:20] LABS: BILIRUBIN,TOTAL 1.4 mg/dL (0.2-1)
[2023-01-12 08:22] LABS: ALK PHOS 74 U/L (45-117)
[2023-01-12 08:25] LABS: ANION GAP 12 mmol/L (4-13); POTASSIUM 2.5 mmol/L (3.5-5.1); TOT PROT 6.7 g/dl (6.4-8.2)
[2023-01-12] MEDS ORDERED: PANTOPRAZOLE SODIUM 40 MG VIAL IVPUSH SCH (10:00)
[2023-01-12] MEDS ORDERED: MULTIVIT INJ. ADULT COMBO WITH VIT K 1 COMBO 10 ML VIAL IV ONE (14:53)
[2023-01-12] MEDS ORDERED: chlordiazePOXIDE HCL 25 MG CAPSULE PO SCH (16:00)
== END 2023-01-12 08:17 | disposition left against medical advice (07) | DRG 770 ==
LOC: JER 14:05 → JERBED 16:29 → J4W 18:15
PROVIDERS: ADMIT Internal Medicine; ATTEND Internal Medicine
PROC: HZ2ZZZZ Detoxification Services for Substance Abuse Treatment (ICD-10-PCS; principal; 2023-01-11)
DX: F10.232 Alcohol dependence with withdrawal with perceptual disturbance (principal); K85.20 Alcohol induced acute pancreatitis without necrosis or infection; E87.1 Hypo-osmolality and hyponatremia; F17.200 Nicotine dependence, unspecified, uncomplicated; I10 Essential (primary) hypertension; R44.0 Auditory hallucinations
CPT/HCPCS: 36415; 80053; 83690; 83735; 84703; 85025; 93005; 93010; 99285-25

== ENCOUNTER 2023-02-11 10:33 | Inpatient (IN) | payer SELFPAY ==
[2023-02-11 10:41] VITALS: BMI 24.5
[2023-02-11] MEDS ORDERED: chlordiazePOXIDE HCL 25 MG CAPSULE PO ONE (11:04)
[2023-02-11] MEDS ORDERED: ACETAMINOPHEN 500 MG TABLET (FP) PO ONE (11:09)
[2023-02-11] MEDS ORDERED: chlordiazePOXIDE HCL 25 MG CAPSULE ONE (11:21)
[2023-02-11] MEDS ORDERED: ACETAMINOPHEN 325 MG TABLET (FP) ONE (11:21)
[2023-02-11 11:46] LABS: BASO % 0.6 % (0-2.0); EOS % 0.1 % (0-4.5); HEMATOCRIT 39.7 % (32.4-45.2); HEMOGLOBIN 13.4 GM/dL (10.7-15.3); LYMPH % 15.1 % (8-40); MCHC 33.8 g/dl (32.0-36.0); MEAN CELL VOLUME 97.6 fl (80-96); MEAN PLT VOLUME 8.6 fl (7.5-11.1); NEUT % 73.2 % (42.8-82.8); PLATELET COUNT 74 10^3/uL (134-434); RBC 4.07 M/mm3 (3.60-5.2); RDW 15.2 % (11.6-15.6); WHITE BLOOD COUNT 5.3 K/mm3 (4.0-10.0)
[2023-02-11 11:52] LABS: POTASSIUM 3.1 mmol/L (3.5-5.1)
[2023-02-11] MEDS ORDERED: AZITHROMYCIN IVPB 1,000 MG in DEXTROSE 5%-WATER - 250 ML IVPB ONE (11:53)
[2023-02-11 11:59] LABS: ALBUMIN 4.2 g/dl (3.4-5.0); BLOOD UREA NITROGEN 4.8 mg/dL (7-18); CALCIUM 8.1 mg/dL (8.5-10.1)
[2023-02-11 12:02] LABS: CREATININE 0.5 mg/dL (0.55-1.3)
[2023-02-11 12:03] LABS: BILIRUBIN,TOTAL 0.5 mg/dL (0.2-1)
[2023-02-11] MEDS ORDERED: CEFTRIAXONE 1 GM/50 ML BAG ONE (12:17)
[2023-02-11] MEDS ORDERED: AZITHROMYCIN IVPB 500 MG/250 ML BAG IVPB ONE (12:18)
[2023-02-11] MEDS ORDERED: POTASSIUM CHLORIDE TABS 20 MEQ TABLET.ER (FP) PO ONE ×2 (12:46→13:08)
[2023-02-11 12:50] LABS: EPI CELLS 16 /uL (0-25.1); HYALINE CASTS 1 /uL (0-3.1); PH,URINE 8.5 (5.0-8.0); URINE APPEARANCE CLOUDY; URINE BACTERIA 249 /uL (0-1359); URINE BILIRUBIN NEGATIVE (NEGATIVE); URINE COLOR YELLOW; URINE GLUCOSE (UA) NEGATIVE (NEGATIVE); URINE KETONE TRACE (NEGATIVE); URINE LEUK ESTERASE TRACE (NEGATIVE); URINE NITRITE NEGATIVE (NEGATIVE); URINE PROTEIN 2+ (NEGATIVE); URINE RBC 8 /uL (0-23.9); URINE WBC 15 /uL (0-25.8)
[2023-02-11 12:54] LABS: METHADONE, UR NEGATIVE (NEGATIVE); OPIATES, URI NEGATIVE (NEGATIVE); PHENCYCLIDINE,URINE NEGATIVE (NEGATIVE)
[2023-02-11 12:55] LABS: URINE BARBITURATES NEGATIVE (NEGATIVE)
[2023-02-11 12:57] LABS: COCAINE, UR NEGATIVE (NEGATIVE); URINE AMPHETAMINES NEGATIVE (NEGATIVE); URINE BENZODIAZEPINES POSITIVE (NEGATIVE)
[2023-02-11 13:20] LABS: SYPHILIS W/ RPR CONF NON-REACTIVE (NONREACTIVE)
[2023-02-11] MEDS ORDERED: POTASSIUM CHLORIDE ORAL LIQUID 20 MEQ/15 ML ONE (13:23)
[2023-02-11 13:49] LABS: HIV INTERPRETATION NEGATIVE (NEGATIVE)
[2023-02-11] MEDS ORDERED: METOCLOPRAMIDE HCL INJECTION 10 MG/2 ML VIAL IVPUSH ONE (16:29)
[2023-02-11] MEDS ORDERED: METOCLOPRAMIDE HCL INJECTION 10 MG/2 ML VIAL ONE (16:37)
[2023-02-11] MEDS ORDERED: ACETAMINOPHEN 500 MG TABLET (FP) PO PRN (16:53)
[2023-02-11] MEDS ORDERED: ONDANSETRON 4 MG/2 ML VIAL IVPUSH PRN (16:53)
[2023-02-11] MEDS ORDERED: LACTATED RINGERS SOLUTION 1,000 ML/1,000 ML INFUS.BAG IV SCH (17:00)
[2023-02-11] MEDS ORDERED: ONDANSETRON 4 MG/2 ML VIAL ONE (20:29)
[2023-02-11] MEDS ORDERED: HEPARIN NA (PORCINE) 5,000 UNITS/ML 1ML VIAL ONE (22:34)
[2023-02-11] MEDS: HEPARIN NA (PORCINE) 5,000 UNITS/ML 1ML VIAL SQ SCH (22:42)
[2023-02-12 07:36] VITALS: TEMP 99.2
[2023-02-12 08:31] LABS: BASO % 0.5 % (0-2.0); EOS % 0.6 % (0-4.5); HEMATOCRIT 40.2 % (32.4-45.2); HEMOGLOBIN 13.5 GM/dL (10.7-15.3); LYMPH % 24.5 % (8-40); MCH 32.7 pg (25.7-33.7); MCHC 33.6 g/dl (32.0-36.0); MEAN CELL VOLUME 97.4 fl (80-96); MEAN PLT VOLUME 8.4 fl (7.5-11.1); MONO % 15.7 % (3.8-10.2); NEUT % 58.7 % (42.8-82.8); PLATELET COUNT 61 10^3/uL (134-434); RBC 4.13 M/mm3 (3.60-5.2); WHITE BLOOD COUNT 3.9 K/mm3 (4.0-10.0)
[2023-02-12 08:37] LABS: POTASSIUM 3.1 mmol/L (3.5-5.1)
[2023-02-12 08:44] LABS: BLOOD UREA NITROGEN 4.4 mg/dL (7-18)
[2023-02-12 08:45] LABS: CALCIUM 8.7 mg/dL (8.5-10.1)
[2023-02-12 08:47] LABS: CREATININE 0.4 mg/dL (0.55-1.3)
[2023-02-12] MEDS ORDERED: POTASSIUM CHLORIDE ORAL LIQUID 20 MEQ/15 ML PO ONE (09:24)
[2023-02-12 10:22] VITALS: RESP 20
[2023-02-12] MEDS ORDERED: KCL 10 MEQ IVPB 10 MEQ/100 ML INFUS.BAG IVPB ONE (10:58)
[2023-02-12] MEDS ORDERED: POTASSIUM CHLORIDE ORAL LIQUID 20 MEQ/15 ML ONE (10:58)
[2023-02-12] MEDS: HEPARIN NA (PORCINE) 5,000 UNITS/ML 1ML VIAL SQ SCH (10:58)
[2023-02-12] MEDS: KCL 10 MEQ IVPB 10 MEQ/100 ML INFUS.BAG IVPB SCH ×2 (11:03→14:02)
[2023-02-12 14:02] VITALS: BP 159/100; PULSE 80
[2023-02-12] MEDS ORDERED: METOPROLOL TARTRATE 25 MG TABLET (FP) PO SCH (14:10)
[2023-02-12] MEDS ORDERED: metoPROLOL SUCCINATE 25 MG TAB.SR.24H (FP) PO ONE (14:37)
== END 2023-02-12 15:23 | disposition home or self-care (01) | DRG 775 ==
LOC: JER 10:33 → JERBED 16:33
PROVIDERS: ADMIT Internal Medicine; ATTEND Internal Medicine
PROC: HZ2ZZZZ Detoxification Services for Substance Abuse Treatment (ICD-10-PCS; principal; 2023-02-11)
DX: F10.239 Alcohol dependence with withdrawal, unspecified (principal); K52.9 Noninfective gastroenteritis and colitis, unspecified; I10 Essential (primary) hypertension; R25.1 Tremor, unspecified; F41.8 Other specified anxiety disorders
CPT/HCPCS: 0241U-QW; 36415; 74177-TC; 76830-TC; 80048; 80053; 80307; 81003; 83690; 84132; 84703; 85025; 86705; 86780; 87086; 87389; 87491; 87517; 87591; 93005; 93010; 99285-25; J1644

== ENCOUNTER 2023-03-10 12:17 | Inpatient (IN) | payer OTHER ==
[2023-03-10 12:28] VITALS: BMI 20.8
[2023-03-10] MEDS ORDERED: diazePAM CARPU-JECT 10 MG/2 ML DISP.SYRIN ONE ×2 (14:19→21:19)
[2023-03-10] MEDS: diazePAM CARPU-JECT 10 MG/2 ML DISP.SYRIN IVPUSH ONE ×3 (14:40→21:29)
[2023-03-10 14:50] LABS: HEMATOCRIT 40.4 % (32.4-45.2); MCH 34.3 pg (25.7-33.7); MCHC 34.6 g/dl (32.0-36.0); MEAN CELL VOLUME 99.1 fl (80-96); MEAN PLT VOLUME 8.3 fl (7.5-11.1); PLATELET COUNT 92 10^3/uL (134-434); RBC 4.07 M/mm3 (3.60-5.2); WHITE BLOOD COUNT 7.8 K/mm3 (4.0-10.0)
[2023-03-10 14:58] LABS: INR 0.93 (0.83-1.09); PROTHROMBIN TIME (PATIENT) 10.8 SEC (9.7-13.0)
[2023-03-10 15:00] LABS: ACTIVATED PTT 27.2 SECONDS (25.2-36.5)
[2023-03-10 15:13] LABS: POTASSIUM 4.2 mmol/L (3.5-5.1)
[2023-03-10 15:15] LABS: ALBUMIN 4.4 g/dl (3.4-5.0); CALCIUM 8.7 mg/dL (8.5-10.1); MAGNESIUM 1.8 mg/dL (1.8-2.4)
[2023-03-10 15:17] LABS: CREATININE 0.5 mg/dL (0.55-1.3)
[2023-03-10 15:19] LABS: BILIRUBIN,TOTAL 0.9 mg/dL (0.2-1); PHOSPHOROUS 2.6 mg/dL (2.5-4.9); TOT PROT 8.6 g/dl (6.4-8.2)
[2023-03-10 15:31] LABS: BLOOD UREA NITROGEN 8.4 mg/dL (7-18)
[2023-03-10] MEDS: FOLIC ACID INJECTION - 1 MG, THIAMINE HCL 100 MG, MULTIVIT INJECTION ADULT 10 ML in SOD... IVPB ONE (16:23)
[2023-03-10 16:29] LABS: EPI CELLS 27 /uL (0-25.1); HYALINE CASTS 0 /uL (0-3.1); PH,URINE 5.5 (5.0-8.0); URINE APPEARANCE CLEAR; URINE BACTERIA 306 /uL (0-1359); URINE BILIRUBIN NEGATIVE (NEGATIVE); URINE COLOR YELLOW; URINE GLUCOSE (UA) NEGATIVE (NEGATIVE); URINE KETONE 4+ (NEGATIVE); URINE LEUK ESTERASE NEGATIVE (NEGATIVE); URINE NITRITE NEGATIVE (NEGATIVE); URINE PROTEIN 3+ (NEGATIVE); URINE RBC 8 /uL (0-23.9); URINE UROBILINOGEN 0.2 mg/dL (0.2-1.0); URINE WBC 7 /uL (0-25.8)
[2023-03-10] MEDS ORDERED: chlordiazePOXIDE HCL 25 MG CAPSULE ONE (20:29)
[2023-03-10] MEDS ORDERED: ACETAMINOPHEN INJECTION 100 ML IVPB ONE (20:29)
[2023-03-10] MEDS: chlordiazePOXIDE HCL 25 MG CAPSULE PO ONE (20:39)
[2023-03-10] MEDS: ACETAMINOPHEN 1000 MG/100 ML BAG IVPB ONE (20:39)
[2023-03-10] MEDS: AMPICILLIN NA/SULBACTAM NA 1.5 GM in SODIUM CHLORIDE 100 ML IVPB ONE (21:04)
[2023-03-10] MEDS: LACTATED RINGERS SOLUTION 1000 ML INFUS.BAG IV ONE (21:04)
[2023-03-10] MEDS ORDERED: ONDANSETRON 4 MG/2 ML VIAL ONE (21:19)
[2023-03-10] MEDS: ONDANSETRON 4 MG/2 ML VIAL IVPUSH ONE (21:28)
[2023-03-10] MEDS: diazePAM 5 MG TABLET PO ONE (21:28)
[2023-03-10] MEDS ORDERED: LORazepam 1 MG TABLET PO PRN (22:02)
[2023-03-10] MEDS ORDERED: LORazepam 2 MG TABLET PO SCH (23:00)
[2023-03-10] MEDS ORDERED: THIAMINE HCL 200 MG/2 ML VIAL ONE (23:17)
[2023-03-10] MEDS ORDERED: LORazepam 1 MG TABLET ONE (23:17)
[2023-03-10] MEDS: THIAMINE HCL 200 MG/2 ML VIAL IVPB ONE (23:25)
[2023-03-10] MEDS: LORazepam 1 MG TABLET PO SCH (23:25)
[2023-03-11] MEDS ORDERED: AMPICILLIN NA/SULBACTAM NA 1.5 GM in SODIUM CHLORIDE 100 ML IVPB SCH (02:00)
[2023-03-11] MEDS: AMPICILLIN NA/SULBACTAM NA 3 GM in DEXTROSE 5%-WATER 100 ML IVPB SCH (02:31)
[2023-03-11] MEDS: SODIUM CHLORIDE 1,000 ML IV SCH (05:20)
[2023-03-11] MEDS: LORazepam 2 MG/ML SDV VIAL IVPUSH ONE ×2 (08:46)
[2023-03-11 09:20] LABS: HEMATOCRIT 36.1 % (32.4-45.2); HEMOGLOBIN 12.5 GM/dL (10.7-15.3); MCHC 34.5 g/dl (32.0-36.0); MEAN CELL VOLUME 98.8 fl (80-96); MEAN PLT VOLUME 8.4 fl (7.5-11.1); PLATELET COUNT 54 10^3/uL (134-434); RBC 3.66 M/mm3 (3.60-5.2); RDW 13.3 % (11.6-15.6); WHITE BLOOD COUNT 3.2 K/mm3 (4.0-10.0)
[2023-03-11 09:41] LABS: POTASSIUM 3.2 mmol/L (3.5-5.1)
[2023-03-11 09:58] LABS: CALCIUM 7.9 mg/dL (8.5-10.1)
[2023-03-11 09:59] LABS: ALBUMIN 3.5 g/dl (3.4-5.0); BLOOD UREA NITROGEN 6.2 mg/dL (7-18); MAGNESIUM 1.4 mg/dL (1.8-2.4)
[2023-03-11] MEDS ORDERED: ATENOLOL 25 MG TABLET (FP) PO SCH (10:00)
[2023-03-11 10:01] LABS: PHOSPHOROUS 1.2 mg/dL (2.5-4.9)
[2023-03-11 10:02] LABS: CREATININE 0.5 mg/dL (0.55-1.3)
[2023-03-11 10:03] LABS: BILIRUBIN,TOTAL 1.3 mg/dL (0.2-1); TOT PROT 6.7 g/dl (6.4-8.2)
[2023-03-11] MEDS: FOLIC ACID 1 MG TABLET (FP) PO SCH (10:07)
[2023-03-11] MEDS: THIAMINE HCL 100 MG TABLET (FP) PO SCH (10:07)
[2023-03-11] MEDS: MAGNESIUM SULFATE IN WATER 2 GM/50 ML IVPB IVPB ONE ×2 (10:41→14:19)
[2023-03-11] MEDS: KCL 10 MEQ IVPB 10 MEQ/100 ML INFUS.BAG IVPB SCH (10:55)
[2023-03-11] MEDS: NAPH,MB-DB/K PH,MBDB POWDER PACKET PO SCH (10:55)
[2023-03-11] MEDS: ONDANSETRON 4 MG/2 ML VIAL IVPUSH PRN (12:17)
[2023-03-11] MEDS: POTASSIUM PHOSPHATE 30 MM in SODIUM CHLORIDE 500 ML IVPB ONE (12:22)
[2023-03-11] MEDS: ATENOLOL 25 MG TABLET (FP) PO SCH (14:27)
[2023-03-11 16:14] LABS: CALCIUM 7.6 mg/dL (8.5-10.1)
[2023-03-11 16:15] LABS: ALBUMIN 3.8 g/dl (3.4-5.0); BLOOD UREA NITROGEN 4.9 mg/dL (7-18); MAGNESIUM 2.4 mg/dL (1.8-2.4)
[2023-03-11 16:19] LABS: CREATININE 0.4 mg/dL (0.55-1.3); PHOSPHOROUS 2.7 mg/dL (2.5-4.9)
[2023-03-11 16:20] LABS: BILIRUBIN,TOTAL 1.1 mg/dL (0.2-1)
[2023-03-11] MEDS: CALCIUM (OYSTER SHELL) 500 MG TABLET (FP) PO SCH (17:55)
[2023-03-12] MEDS: MELATONIN 5 MG TABLETS PO ONE (00:03)
[2023-03-12] MEDS ORDERED: LORazepam 1 MG TABLET PO SCH (05:00)
[2023-03-12] MEDS: LORazepam 1 MG TABLET PO PRN (05:15)
[2023-03-12] MEDS: LORazepam 1 MG TABLET PO SCH (05:17)
[2023-03-12 09:34] LABS: BASO % 0.5 % (0-2.0); EOS % 2.9 % (0-4.5); HEMATOCRIT 38.2 % (32.4-45.2); HEMOGLOBIN 13.4 GM/dL (10.7-15.3); LYMPH % 31.4 % (8-40); MCH 34.6 pg (25.7-33.7); MEAN PLT VOLUME 9.3 fl (7.5-11.1); MONO % 10.3 % (3.8-10.2); NEUT % 54.9 % (42.8-82.8); PLATELET COUNT 54 10^3/uL (134-434); RBC 3.86 M/mm3 (3.60-5.2); RDW 13.1 % (11.6-15.6); WHITE BLOOD COUNT 3.1 K/mm3 (4.0-10.0)
[2023-03-12 10:08] LABS: POTASSIUM 3.7 mmol/L (3.5-5.1)
[2023-03-12 10:16] LABS: CALCIUM 8.3 mg/dL (8.5-10.1)
[2023-03-12 10:17] LABS: ALBUMIN 3.8 g/dl (3.4-5.0); BLOOD UREA NITROGEN 4.1 mg/dL (7-18); MAGNESIUM 2.2 mg/dL (1.8-2.4)
[2023-03-12 10:20] LABS: CREATININE 0.4 mg/dL (0.55-1.3); PHOSPHOROUS 1.8 mg/dL (2.5-4.9)
[2023-03-12 10:21] LABS: BILIRUBIN,TOTAL 1.1 mg/dL (0.2-1); TOT PROT 7.1 g/dl (6.4-8.2)
[2023-03-12] MEDS: POTASSIUM PHOSPHATE 30 MM in SODIUM CHLORIDE 500 ML IVPB ONE (11:25)
[2023-03-12 11:38] LABS: BILIRUBIN,DIRECT 0.4 mg/dL (0.0-0.2)
[2023-03-12] MEDS: AMINO ACIDS 4.25%/D5W 1,000 ML IV SCH ×2 (16:25→21:20)
[2023-03-12] MEDS: SODIUM CHLORIDE 1,000 ML IV SCH (16:52)
[2023-03-12] MEDS: IBUPROFEN 600 MG TABLET (FP) PO ONE (21:28)
[2023-03-12] MEDS: TRIMETHOBENZAMIDE HCL 200MG/2ML INJ IM PRN (21:29)
[2023-03-13] MEDS ORDERED: LORazepam 0.5 MG TABLET PO PRN
[2023-03-13] MEDS: traMADol HCL 50 MG TABLET PO ONE (02:02)
[2023-03-13] MEDS: LORazepam 0.5 MG TABLET PO PRN (02:04)
[2023-03-13] MEDS ORDERED: LORazepam 0.5 MG TABLET PO SCH (05:00)
[2023-03-13] MEDS: LORazepam 0.5 MG TABLET PO SCH (05:06)
[2023-03-13 09:02] LABS: BASO % 0.3 % (0-2.0); EOS % 2.1 % (0-4.5); HEMATOCRIT 38.7 % (32.4-45.2); HEMOGLOBIN 13.4 GM/dL (10.7-15.3); LYMPH % 36.6 % (8-40); MCH 34.2 pg (25.7-33.7); MCHC 34.7 g/dl (32.0-36.0); MEAN CELL VOLUME 98.4 fl (80-96); MEAN PLT VOLUME 9.7 fl (7.5-11.1); MONO % 10.4 % (3.8-10.2); NEUT % 50.6 % (42.8-82.8); PLATELET COUNT 64 10^3/uL (134-434); RBC 3.93 M/mm3 (3.60-5.2); RDW 13.1 % (11.6-15.6); WHITE BLOOD COUNT 4.5 K/mm3 (4.0-10.0)
[2023-03-13 09:38] LABS: POTASSIUM 3.5 mmol/L (3.5-5.1)
[2023-03-13 09:45] LABS: CALCIUM 8.6 mg/dL (8.5-10.1)
[2023-03-13 09:46] LABS: ALBUMIN 4.1 g/dl (3.4-5.0); BLOOD UREA NITROGEN 5.4 mg/dL (7-18); MAGNESIUM 1.7 mg/dL (1.8-2.4)
[2023-03-13 09:49] LABS: CREATININE 0.5 mg/dL (0.55-1.3); PHOSPHOROUS 3.3 mg/dL (2.5-4.9)
[2023-03-13 09:50] LABS: BILIRUBIN,TOTAL 1.1 mg/dL (0.2-1); TOT PROT 7.3 g/dl (6.4-8.2)
[2023-03-13 10:07] LABS: BILIRUBIN,DIRECT 0.4 mg/dL (0.0-0.2)
[2023-03-13] MEDS ORDERED: MAGNESIUM SULFATE IN WATER 2 GM/50 ML IVPB IVPB ONE (10:30)
[2023-03-13] MEDS: SERTRALINE HCL 25 MG TABLET (FP) PO SCH (10:43)
[2023-03-13] MEDS: MAGNESIUM SULFATE IN WATER 2 GM/50 ML IVPB IVPB ONE (12:27)
[2023-03-13 21:24] VITALS: RESP 18
[2023-03-14] MEDS ORDERED: LORazepam 0.5 MG TABLET PO ONE (05:00)
[2023-03-14] MEDS: LORazepam 0.5 MG TABLET PO ONE (05:52)
[2023-03-14 07:14] VITALS: BP 136/87; PULSE 66; TEMP 98.1
[2023-03-14 09:00] LABS: BASO % 0.6 % (0-2.0); EOS % 1.9 % (0-4.5); HEMOGLOBIN 13.4 GM/dL (10.7-15.3); LYMPH % 32.6 % (8-40); MCH 34.1 pg (25.7-33.7); MCHC 34.3 g/dl (32.0-36.0); MEAN CELL VOLUME 99.4 fl (80-96); MEAN PLT VOLUME 9.2 fl (7.5-11.1); MONO % 11.3 % (3.8-10.2); NEUT % 53.6 % (42.8-82.8); PLATELET COUNT 86 10^3/uL (134-434); RBC 3.93 M/mm3 (3.60-5.2); RDW 12.5 % (11.6-15.6); WHITE BLOOD COUNT 4.5 K/mm3 (4.0-10.0)
[2023-03-14 09:19] LABS: POTASSIUM 3.5 mmol/L (3.5-5.1)
[2023-03-14 09:21] LABS: CALCIUM 9.1 mg/dL (8.5-10.1)
[2023-03-14 09:25] LABS: CREATININE 0.5 mg/dL (0.55-1.3)
[2023-03-14 09:26] LABS: TOT PROT 7.1 g/dl (6.4-8.2)
== END 2023-03-14 11:11 | disposition home or self-care (01) | DRG 775 ==
LOC: JER 12:17 → JERBED 21:09 → OBSVTOIN 22:03 → J7W 23:58
PROVIDERS: ADMIT Internal Medicine; ATTEND Nurse Practitioner
PROC: HZ2ZZZZ Detoxification Services for Substance Abuse Treatment (ICD-10-PCS; principal; 2023-03-10)
DX: F10.239 Alcohol dependence with withdrawal, unspecified (principal); I10 Essential (primary) hypertension; J45.909 Unspecified asthma, uncomplicated; K70.10 Alcoholic hepatitis without ascites; F41.8 Other specified anxiety disorders; D69.6 Thrombocytopenia, unspecified; F12.90 Cannabis use, unspecified, uncomplicated; R56.9 Unspecified convulsions; E87.6 Hypokalemia; E83.42 Hypomagnesemia; E83.39 Other disorders of phosphorus metabolism; K52.9 Noninfective gastroenteritis and colitis, unspecified; E87.1 Hypo-osmolality and hyponatremia; R11.2 Nausea with vomiting, unspecified; D72.819 Decreased white blood cell count, unspecified; R63.0 Anorexia; Z68.20 Body mass index [BMI] 20.0-20.9, adult
CPT/HCPCS: 0241U-QW; 36415; 74177-TC; 76700-TC; 80053; 81003; 82248; 82550; 82607; 82746; 82962; 83690; 83735; 84100; 84703; 85025; 85027; 85610; 85730; 86704; 86803; 86850; 86900; 86901; 87045; 87046; 87086; 87340; 87517; 93005; 93010; 99285-25; G0378; J0131; Q9967

== ENCOUNTER 2023-04-08 12:32 | Inpatient (IN) | payer OTHER ==
[2023-04-08] MEDS ORDERED: diazePAM CARPU-JECT 10 MG/2 ML DISP.SYRIN ONE ×3 (13:33→15:29)
[2023-04-08] MEDS ORDERED: ONDANSETRON 4 MG/2 ML VIAL ONE (13:34)
[2023-04-08 13:52] LABS: BASO % 0.5 % (0-2.0); HEMATOCRIT 40.8 % (32.4-45.2); LYMPH % 16.1 % (8-40); MCH 32.7 pg (25.7-33.7); MCHC 34.3 g/dl (32.0-36.0); MEAN CELL VOLUME 95.2 fl (80-96); MEAN PLT VOLUME 9.1 fl (7.5-11.1); MONO % 5.1 % (3.8-10.2); NEUT % 78.3 % (42.8-82.8); PLATELET COUNT 56 10^3/uL (134-434); RBC 4.29 M/mm3 (3.60-5.2); RDW 12.7 % (11.6-15.6); WHITE BLOOD COUNT 6.5 K/mm3 (4.0-10.0)
[2023-04-08] MEDS: LACTATED RINGERS SOLUTION 1000 ML INFUS.BAG IV ONE (13:57)
[2023-04-08] MEDS: ONDANSETRON 4 MG/2 ML VIAL IVPUSH ONE (13:57)
[2023-04-08] MEDS: diazePAM CARPU-JECT 10 MG/2 ML DISP.SYRIN IVPUSH ONE ×3 (13:57→15:32)
[2023-04-08 14:01] LABS: POTASSIUM 3.4 mmol/L (3.5-5.1)
[2023-04-08 14:04] LABS: ALBUMIN 4.3 g/dl (3.4-5.0); BLOOD UREA NITROGEN 11.8 mg/dL (7-18); CALCIUM 8.7 mg/dL (8.5-10.1); MAGNESIUM 1.8 mg/dL (1.8-2.4)
[2023-04-08 14:07] LABS: CREATININE 0.5 mg/dL (0.55-1.3)
[2023-04-08 14:09] LABS: BILIRUBIN,TOTAL 0.7 mg/dL (0.2-1); TOT PROT 8.5 g/dl (6.4-8.2)
[2023-04-08 14:37] LABS: VENOUS BASE EXCESS -1.9 mmol/L (-2-2); VENOUS O2 SATURATION 96.9 % (70-80); VENOUS PCO2 29.6 mmHg (38-52); VENOUS PH 7.463 (7.310-7.410)
[2023-04-08] MEDS ORDERED: LORazepam 1 MG TABLET ONE (16:35)
[2023-04-08] MEDS: LORazepam 1 MG TABLET PO SCH (16:40)
[2023-04-08] MEDS: LACTATED RINGERS SOLUTION 1,000 ML/1,000 ML INFUS.BAG IV SCH (16:40)
[2023-04-08 20:23] VITALS: BMI 25.2
[2023-04-08] MEDS: ONDANSETRON 4 MG/2 ML VIAL IVPUSH PRN (20:43)
[2023-04-08] MEDS: THIAMINE HCL 100 MG TABLET (FP) PO SCH (21:33)
[2023-04-09] MEDS ORDERED: ALBUTEROL SO4 0.083% IH SOL 2.5 MG/3 ML VIAL.NEB. NEB PRN (08:11)
[2023-04-09 09:09] LABS: BASO % 0.5 % (0-2.0); EOS % 0.9 % (0-4.5); HEMATOCRIT 37.3 % (32.4-45.2); HEMOGLOBIN 13.1 GM/dL (10.7-15.3); LYMPH % 43.9 % (8-40); MCH 33.4 pg (25.7-33.7); MCHC 35.1 g/dl (32.0-36.0); MEAN CELL VOLUME 95.4 fl (80-96); MEAN PLT VOLUME 9.4 fl (7.5-11.1); MONO % 7.6 % (3.8-10.2); NEUT % 47.1 % (42.8-82.8); RBC 3.91 M/mm3 (3.60-5.2); RDW 12.6 % (11.6-15.6)
[2023-04-09 09:19] LABS: PLATELET COUNT 36 10^3/uL (134-434)
[2023-04-09 09:25] LABS: POTASSIUM 3.3 mmol/L (3.5-5.1)
[2023-04-09 09:35] LABS: CALCIUM 8.2 mg/dL (8.5-10.1)
[2023-04-09 09:39] LABS: CREATININE 0.5 mg/dL (0.55-1.3)
[2023-04-09] MEDS ORDERED: LORazepam 1 MG TABLET PO PRN (10:53)
[2023-04-09 11:41] LABS: INR 1.07 (0.83-1.09); PROTHROMBIN TIME (PATIENT) 12.4 SEC (9.7-13.0)
[2023-04-09] MEDS: LORazepam 1 MG TABLET PO SCH ×2 (13:00→17:35)
[2023-04-09] MEDS: amLODIPine BESYLATE 5 MG TABLET (FP) PO SCH (13:10)
[2023-04-09] MEDS: LORazepam 2 MG TABLET PO SCH (13:13)
[2023-04-09] MEDS: FOLIC ACID 1 MG TABLET (FP) PO SCH (13:17)
[2023-04-09 13:31] LABS: MAGNESIUM 1.5 mg/dL (1.8-2.4)
[2023-04-09] MEDS: MAGNESIUM SULF 50% (8.12 MEQ/2 ML-1 GM VIAL) IVPB ONE (16:50)
[2023-04-10] MEDS: TRIMETHOBENZAMIDE HCL 200MG/2ML INJ IM PRN (02:09)
[2023-04-10 06:41] LABS: HEMATOCRIT 38.5 % (32.4-45.2); HEMOGLOBIN 13.4 GM/dL (10.7-15.3); MCH 33.2 pg (25.7-33.7); MCHC 34.7 g/dl (32.0-36.0); MEAN CELL VOLUME 95.7 fl (80-96); MEAN PLT VOLUME 10.3 fl (7.5-11.1); PLATELET COUNT 38 10^3/uL (134-434); RBC 4.02 M/mm3 (3.60-5.2); RDW 12.2 % (11.6-15.6); WHITE BLOOD COUNT 4.8 K/mm3 (4.0-10.0)
[2023-04-10 06:57] LABS: POTASSIUM 3.4 mmol/L (3.5-5.1)
[2023-04-10] MEDS: LACTATED RINGERS SOLUTION 1,000 ML/1,000 ML INFUS.BAG IV SCH (07:11)
[2023-04-10 07:13] LABS: MAGNESIUM 1.9 mg/dL (1.8-2.4)
[2023-04-10 07:14] LABS: ALBUMIN 4.2 g/dl (3.4-5.0); BLOOD UREA NITROGEN 5.9 mg/dL (7-18)
[2023-04-10 07:15] LABS: CREATININE 0.4 mg/dL (0.55-1.3); PHOSPHOROUS 2.4 mg/dL (2.5-4.9)
[2023-04-10 07:17] LABS: TOT PROT 8.1 g/dl (6.4-8.2)
[2023-04-10] MEDS: NAPH,MB-DB/K PH,MBDB POWDER PACKET PO ONE (08:40)
[2023-04-10] MEDS: POTASSIUM CHLORIDE ORAL LIQUID 20 MEQ/15 ML PO ONE (13:03)
[2023-04-10] MEDS: METOPROLOL TARTRATE 5 MG/5 ML VIAL IVPUSH ONE (15:36)
[2023-04-10 18:12] VITALS: RESP 20
[2023-04-10] MEDS: METOPROLOL TARTRATE 25 MG TABLET (FP) PO SCH (21:50)
[2023-04-11] MEDS ORDERED: LORazepam 1 MG TABLET PO SCH (05:00)
[2023-04-11 06:42] VITALS: PULSE 110
[2023-04-11 06:43] LABS: HEMATOCRIT 39.2 % (32.4-45.2); HEMOGLOBIN 13.5 GM/dL (10.7-15.3); MCHC 34.4 g/dl (32.0-36.0); MEAN CELL VOLUME 96.2 fl (80-96); MEAN PLT VOLUME 9.8 fl (7.5-11.1); PLATELET COUNT 47 10^3/uL (134-434); RBC 4.08 M/mm3 (3.60-5.2); RDW 12.4 % (11.6-15.6); WHITE BLOOD COUNT 4.7 K/mm3 (4.0-10.0)
[2023-04-11 07:03] LABS: POTASSIUM 3.9 mmol/L (3.5-5.1)
[2023-04-11 07:11] LABS: ALBUMIN 3.8 g/dl (3.4-5.0); BLOOD UREA NITROGEN 6.2 mg/dL (7-18); MAGNESIUM 1.9 mg/dL (1.8-2.4)
[2023-04-11 07:14] LABS: CREATININE 0.4 mg/dL (0.55-1.3)
[2023-04-11 07:15] LABS: TOT PROT 7.4 g/dl (6.4-8.2)
[2023-04-11 12:36] VITALS: BP 150/114; TEMP 98.4
[2023-04-12] MEDS ORDERED: LORazepam 0.5 MG TABLET PO PRN
[2023-04-12] MEDS ORDERED: LORazepam 0.5 MG TABLET PO SCH (05:00)
[2023-04-13] MEDS ORDERED: LORazepam 0.5 MG TABLET PO ONE (05:00)
== END 2023-04-11 11:07 | disposition other institution (70) | DRG 775 ==
LOC: JER 12:32 → JERBED 15:21 → OBSVTOIN 15:21 → J4W 18:46
PROVIDERS: ADMIT Internal Medicine; ATTEND Internal Medicine
PROC: HZ2ZZZZ Detoxification Services for Substance Abuse Treatment (ICD-10-PCS; principal; 2023-04-08)
DX: F10.239 Alcohol dependence with withdrawal, unspecified (principal); E87.3 Alkalosis; D69.6 Thrombocytopenia, unspecified; E86.0 Dehydration; F41.8 Other specified anxiety disorders; I10 Essential (primary) hypertension; J45.909 Unspecified asthma, uncomplicated; K70.10 Alcoholic hepatitis without ascites; K70.9 Alcoholic liver disease, unspecified; R25.1 Tremor, unspecified; R44.0 Auditory hallucinations; R74.01 Elevation of levels of liver transaminase levels; R94.5 Abnormal results of liver function studies
CPT/HCPCS: 0241U-QW; 36415; 76705-TC; 80048; 80053; 80307; 82010; 82803; 83690; 83735; 84100; 84450; 84460; 84703; 85025; 85027; 85610; 93005; 93010; 99285-25

== ENCOUNTER 2023-04-20 23:45 | Emergency (ER) | payer OTHER ==
[2023-04-20 23:52] VITALS: BP 152/92; RESP 18; TEMP 98.8; BMI 24.0
[2023-04-21 00:51] VITALS: PULSE 109
[2023-04-21] MEDS ORDERED: chlordiazePOXIDE HCL 25 MG CAPSULE ONE (02:38)
[2023-04-21] MEDS: chlordiazePOXIDE HCL 25 MG CAPSULE PO ONE (02:42)
== END 2023-04-21 03:28 | disposition home or self-care (01) ==
LOC: JER 23:45
DX: F10.230 Alcohol dependence with withdrawal, uncomplicated (principal)
CPT/HCPCS: 99283-25

== ENCOUNTER 2023-04-21 03:36 | Inpatient (IN) | payer OTHER ==
[2023-04-21] MEDS ORDERED: BENZONATATE 200 MG CAPSULE PO PRN (05:17)
[2023-04-21] MEDS ORDERED: LOPERAMIDE HCL 2 MG CAPSULE PO PRN (05:17)
[2023-04-21] MEDS ORDERED: DICYCLOMINE HCL 10 MG CAPSULE PO PRN (05:17)
[2023-04-21] MEDS ORDERED: IBUPROFEN 400 MG TABLET (FP) PO PRN (05:17)
[2023-04-21] MEDS ORDERED: guaiFENesin 600 MG TABLET.ER (FP) PO PRN (05:17)
[2023-04-21] MEDS ORDERED: BENZOCAINE/MENTHOL (CHLORASEPTIC ) LOZENGE MM PRN (05:17)
[2023-04-21] MEDS ORDERED: chlordiazePOXIDE HCL 25 MG CAPSULE PO PRN (05:17)
[2023-04-21] MEDS ORDERED: POLYETHYLENE GLYCOL (HEALTHYLAX) 3350 17 GM PACKET PO PRN (05:17)
[2023-04-21] MEDS ORDERED: BISMUTH SUBSALICYLATE 524 MG/30 ML PO PRN (05:17)
[2023-04-21] MEDS ORDERED: MAG HYDROX/AL HYDROX/SIMETH 30 ML UNIT-DOSE CUP PO PRN (05:17)
[2023-04-21] MEDS ORDERED: NALOXONE HCL (KLOXXADO) 8 MG SPRAY NS PRN (05:17)
[2023-04-21] MEDS ORDERED: NALOXONE HCL 0.4 MG/ML VIAL IM PRN (05:17)
[2023-04-21] MEDS ORDERED: NICOTINE POLACRILEX 2 MG GUM BUC PRN (05:17)
[2023-04-21] MEDS: LORazepam 2 MG/ML SDV VIAL IM ONE (05:30)
[2023-04-21 05:31] VITALS: BMI 24.0
[2023-04-21] MEDS: cloNIDine HCL 0.1 MG TABLET PO ONE (05:37)
[2023-04-21] MEDS: TRIMETHOBENZAMIDE HCL 200MG/2ML INJ IM ONE (06:07)
[2023-04-21] MEDS: METOPROLOL TARTRATE 25 MG TABLET (FP) PO ONE (06:32)
[2023-04-21] MEDS: chlordiazePOXIDE HCL 25 MG CAPSULE PO SCH (06:32)
[2023-04-21] MEDS: LORazepam 2 MG TABLET PO SCH (10:29)
[2023-04-21] MEDS: ONDANSETRON *ODT* 4 MG TABLET SL PRN (10:29)
[2023-04-21] MEDS: PRENATAL VITAMINS W/ FOLIC ACID TABLET (FP) PO SCH (10:29)
[2023-04-21 12:49] LABS: HEMATOCRIT 33.9 % (32.4-45.2); HEMOGLOBIN 11.3 GM/dL (10.7-15.3); MCH 32.5 pg (25.7-33.7); MCHC 33.5 g/dl (32.0-36.0); MEAN CELL VOLUME 97.1 fl (80-96); MEAN PLT VOLUME 7.8 fl (7.5-11.1); PLATELET COUNT 269 10^3/uL (134-434); RBC 3.49 M/mm3 (3.60-5.2); RDW 13.1 % (11.6-15.6); WHITE BLOOD COUNT 4.6 K/mm3 (4.0-10.0)
[2023-04-21 12:52] LABS: CHLORIDE 97 mmol/L (98-107); SODIUM 137 mmol/L (136-145)
[2023-04-21 13:02] LABS: ALBUMIN 3.7 g/dl (3.4-5.0); ANION GAP 15 mmol/L (4-13); CALCIUM 8.7 mg/dL (8.5-10.1); CO2 24 mmol/L (21-32); GLUCOSE,RANDOM 77 mg/dL (74-106)
[2023-04-21 13:04] LABS: SGPT/ALT 81 U/L (13-61)
[2023-04-21 13:05] LABS: CREATININE 0.4 mg/dL (0.55-1.3); SGOT/AST 46 U/L (15-37)
[2023-04-21 13:06] LABS: TOT PROT 7.1 g/dl (6.4-8.2)
[2023-04-21 13:07] LABS: ALK PHOS 62 U/L (45-117)
[2023-04-21 13:12] LABS: BILIRUBIN,TOTAL 0.8 mg/dL (0.2-1)
[2023-04-21 13:23] LABS: BLOOD UREA NITROGEN 2.3 mg/dL (7-18)
[2023-04-21] MEDS: LORazepam 1 MG TABLET PO PRN (20:19)
[2023-04-21] MEDS: hydrOXYzine PAMOATE 25 MG CAPSULE (FP) PO PRN (22:13)
[2023-04-21] MEDS: METHOCARBAMOL 500 MG TABLET PO PRN (22:13)
[2023-04-21] MEDS: THIAMINE HCL 100 MG TABLET (FP) PO SCH (22:13)
[2023-04-21] MEDS: MELATONIN 5 MG TABLETS PO SCH (22:13)
[2023-04-22] MEDS ORDERED: chlordiazePOXIDE HCL 25 MG CAPSULE PO SCH (05:00)
[2023-04-22] MEDS: MAGNESIUM HYDROX 2400MG/30ML ORAL SUSPENSION 30 ML CUP PO PRN (05:28)
[2023-04-22] MEDS: ACETAMINOPHEN 325 MG TABLET (FP) PO PRN (05:30)
[2023-04-22] MEDS: IBUPROFEN 600 MG TABLET (FP) PO PRN (15:52)
[2023-04-23] MEDS ORDERED: chlordiazePOXIDE HCL 10 MG CAPSULE PO PRN
[2023-04-23] MEDS ORDERED: chlordiazePOXIDE HCL 10 MG CAPSULE PO SCH (05:00)
[2023-04-23] MEDS: LORazepam 1 MG TABLET PO SCH (05:35)
[2023-04-23] MEDS: ATENOLOL 25 MG TABLET (FP) PO SCH (13:24)
[2023-04-23] MEDS: amLODIPine BESYLATE 5 MG TABLET (FP) PO SCH (13:24)
[2023-04-24] MEDS ORDERED: chlordiazePOXIDE HCL 10 MG CAPSULE PO SCH (05:00)
[2023-04-24] MEDS: LORazepam 0.5 MG TABLET PO SCH (05:34)
[2023-04-24] MEDS: amLODIPine BESYLATE 5 MG TABLET (FP) PO ONE (12:54)
[2023-04-24] MEDS: LORazepam 0.5 MG TABLET PO PRN (19:25)
[2023-04-24] MEDS: MELATONIN 5 MG TABLETS PO ONE (22:59)
[2023-04-25] MEDS ORDERED: chlordiazePOXIDE HCL 10 MG CAPSULE PO ONE (05:00)
[2023-04-25] MEDS: LORazepam 0.5 MG TABLET PO ONE (05:42)
[2023-04-25 06:17] VITALS: RESP 16
[2023-04-25] MEDS: amLODIPine BESYLATE 10 MG TABLET (FP) PO SCH (10:12)
[2023-04-25 12:56] VITALS: BP 141/90; PULSE 84; TEMP 97.7
== END 2023-04-25 13:56 | disposition other institution (70) | DRG 775 ==
LOC: YASAS 03:36 → Y3N 05:25
PROVIDERS: ADMIT Allergy & Immunology; ATTEND Allergy & Immunology
PROC: HZ2ZZZZ Detoxification Services for Substance Abuse Treatment (ICD-10-PCS; principal; 2023-04-21)
DX: F10.230 Alcohol dependence with withdrawal, uncomplicated (principal); F12.10 Cannabis abuse, uncomplicated; F19.24 Other psychoactive substance dependence with psychoactive substance-induced mood disorder; G47.00 Insomnia, unspecified; I10 Essential (primary) hypertension; R74.8 Abnormal levels of other serum enzymes; Z62.810 Personal history of physical and sexual abuse in childhood; Z87.19 Personal history of other diseases of the digestive system; Z87.891 Personal history of nicotine dependence
CPT/HCPCS: 36415; 80053; 80305; 80307; 81025; 84520; 85027; 86780; 87635; Q0162

== ENCOUNTER 2023-06-03 13:07 | Emergency (ER) | payer OTHER ==
[2023-06-03 13:20] VITALS: BMI 23.8
[2023-06-03] MEDS: SODIUM CHLORIDE 1,000 ML IV STA (14:53)
[2023-06-03 14:57] LABS: BASO % 0.4 % (0-2.0); HEMATOCRIT 39.4 % (32.4-45.2); HEMOGLOBIN 13.3 GM/dL (10.7-15.3); LYMPH % 7.9 % (8-40); MCH 31.7 pg (25.7-33.7); MCHC 33.9 g/dl (32.0-36.0); MEAN CELL VOLUME 93.6 fl (80-96); MEAN PLT VOLUME 7.5 fl (7.5-11.1); MONO % 3.7 % (3.8-10.2); PLATELET COUNT 108 10^3/uL (134-434); RDW 13.6 % (11.6-15.6); WHITE BLOOD COUNT 7.5 K/mm3 (4.0-10.0)
[2023-06-03 15:22] LABS: POTASSIUM 3.6 mmol/L (3.5-5.1)
[2023-06-03 15:25] LABS: ALBUMIN 4.2 g/dl (3.4-5.0); BLOOD UREA NITROGEN 10.9 mg/dL (7-18); CALCIUM 8.4 mg/dL (8.5-10.1)
[2023-06-03 15:28] LABS: CREATININE 0.5 mg/dL (0.55-1.3)
[2023-06-03 15:29] LABS: TOT PROT 7.7 g/dl (6.4-8.2)
[2023-06-03 17:27] VITALS: BP 136/82; PULSE 78; RESP 16; TEMP 98.9
== END 2023-06-03 18:55 | disposition left against medical advice (07) ==
LOC: JER 13:07
PROC: 3E033GC Introduction of Other Therapeutic Substance into Peripheral Vein, Percutaneous Approach (ICD-10-PCS; principal; 2023-06-03)
PROC: 3E0337Z Introduction of Electrolytic and Water Balance Substance into Peripheral Vein, Percutaneous Approach (ICD-10-PCS; 2023-06-03)
DX: F10.930 Alcohol use, unspecified with withdrawal, uncomplicated (principal); Y90.8 Blood alcohol level of 240 mg/100 ml or more
CPT/HCPCS: 36415; 80053; 80307; 83690; 84703; 85025; 93005; 93010; 99284-25

== ENCOUNTER 2023-06-05 21:42 | Emergency (ER) | payer OTHER ==
[2023-06-05 21:50] VITALS: BMI 23.8
[2023-06-05] MEDS ORDERED: ONDANSETRON *ODT* 4 MG TABLET ONE (23:04)
[2023-06-05] MEDS: ONDANSETRON *ODT* 4 MG TABLET SL ONE (23:05)
[2023-06-05 23:08] LABS: BASO % 0.6 % (0-2.0); HEMATOCRIT 36.7 % (32.4-45.2); HEMOGLOBIN 12.6 GM/dL (10.7-15.3); LYMPH % 30.7 % (8-40); MCHC 34.4 g/dl (32.0-36.0); MONO % 6.6 % (3.8-10.2); NEUT % 62.1 % (42.8-82.8); RBC 3.95 M/mm3 (3.60-5.2); RDW 13.5 % (11.6-15.6); WHITE BLOOD COUNT 3.9 K/mm3 (4.0-10.0)
[2023-06-05] MEDS ORDERED: chlordiazePOXIDE HCL 25 MG CAPSULE ONE (23:21)
[2023-06-05] MEDS: chlordiazePOXIDE HCL 25 MG CAPSULE PO ONE (23:23)
[2023-06-05 23:29] LABS: POTASSIUM 3.4 mmol/L (3.5-5.1)
[2023-06-05 23:31] LABS: CALCIUM 8.9 mg/dL (8.5-10.1)
[2023-06-05 23:32] LABS: ALBUMIN 4.2 g/dl (3.4-5.0); BLOOD UREA NITROGEN 4.9 mg/dL (7-18)
[2023-06-05 23:35] LABS: CREATININE 0.5 mg/dL (0.55-1.3)
[2023-06-05 23:36] LABS: COCAINE, UR NEGATIVE (NEGATIVE); METHADONE, UR NEGATIVE (NEGATIVE); OPIATES, URI NEGATIVE (NEGATIVE); URINE AMPHETAMINES NEGATIVE (NEGATIVE); URINE BENZODIAZEPINES NEGATIVE (NEGATIVE)
[2023-06-05 23:36] LABS: BILIRUBIN,TOTAL 0.7 mg/dL (0.2-1); TOT PROT 7.8 g/dl (6.4-8.2)
[2023-06-05 23:37] LABS: PHENCYCLIDINE,URINE NEGATIVE (NEGATIVE); URINE BARBITURATES NEGATIVE (NEGATIVE)
[2023-06-05 23:47] LABS: MEAN PLT VOLUME 7.5 fl (7.5-11.1); PLATELET COUNT 55 10^3/uL (134-434)
[2023-06-06] MEDS ORDERED: POTASSIUM CHLORIDE ORAL LIQUID 20 MEQ/15 ML ONE (00:34)
[2023-06-06] MEDS: POTASSIUM CHLORIDE ORAL LIQUID 20 MEQ/15 ML PO ONE (00:36)
[2023-06-06] MEDS: SODIUM CHLORIDE 0.9% 500 ML INFUS.BAG IV ONE (01:44)
[2023-06-06 01:45] VITALS: BP 151/95; PULSE 95; RESP 20; TEMP 98.3
[2023-06-06] MEDS ORDERED: MAG HYDROX/AL HYDROX/SIMETH 30 ML UNIT-DOSE CUP ONE (01:52)
[2023-06-06] MEDS ORDERED: METOCLOPRAMIDE HCL INJECTION 10 MG/2 ML VIAL IVPUSH ONE (01:52)
[2023-06-06] MEDS ORDERED: FAMOTIDINE 20 MG/50 ML IVPB 20 MG/50 ML MG IVPB ONE (01:53)
[2023-06-06] MEDS: MAG HYDROX/AL HYDROX/SIMETH 30 ML UNIT-DOSE CUP PO ONE (01:55)
[2023-06-06] MEDS: FAMOTIDINE 20 MG/50 ML IVPB 20 MG/50 ML MG IVPB ONE (01:55)
== END 2023-06-06 02:50 | disposition home or self-care (01) ==
LOC: JER 21:42
PROC: 3E033GC Introduction of Other Therapeutic Substance into Peripheral Vein, Percutaneous Approach (ICD-10-PCS; principal; 2023-06-06)
DX: F10.930 Alcohol use, unspecified with withdrawal, uncomplicated (principal); R07.9 Chest pain, unspecified; R11.2 Nausea with vomiting, unspecified; R00.0 Tachycardia, unspecified; R10.84 Generalized abdominal pain
CPT/HCPCS: 36415; 71045-TC-FY; 80053; 80307; 83690; 83735; 84484; 84703; 85025; 93005; 93010; 99285-25; Q0162

== ENCOUNTER 2023-06-06 03:18 | Inpatient (IN) | payer OTHER ==
[2023-06-06 03:37] VITALS: BMI 22.4
[2023-06-06] MEDS ORDERED: TRIMETHOBENZAMIDE HCL 200MG/2ML INJ IM ONE (04:34)
[2023-06-06] MEDS: TRIMETHOBENZAMIDE HCL 200MG/2ML INJ IM ONE (04:39)
[2023-06-06] MEDS ORDERED: BISMUTH SUBSALICYLATE 524 MG/30 ML PO PRN (05:18)
[2023-06-06] MEDS ORDERED: ACETAMINOPHEN 325 MG TABLET (FP) PO PRN (05:18)
[2023-06-06] MEDS ORDERED: hydrOXYzine PAMOATE 25 MG CAPSULE (FP) PO PRN (05:18)
[2023-06-06] MEDS ORDERED: POLYETHYLENE GLYCOL (HEALTHYLAX) 3350 17 GM PACKET PO PRN (05:18)
[2023-06-06] MEDS ORDERED: NALOXONE HCL (KLOXXADO) 8 MG SPRAY NS PRN (05:18)
[2023-06-06] MEDS ORDERED: IBUPROFEN 400 MG TABLET (FP) PO PRN (05:18)
[2023-06-06] MEDS ORDERED: MAGNESIUM HYDROX 2400MG/30ML ORAL SUSPENSION 30 ML CUP PO PRN (05:18)
[2023-06-06] MEDS ORDERED: BENZONATATE 200 MG CAPSULE PO PRN (05:18)
[2023-06-06] MEDS ORDERED: NALOXONE HCL 0.4 MG/ML VIAL IM PRN (05:18)
[2023-06-06] MEDS ORDERED: guaiFENesin 600 MG TABLET.ER (FP) PO PRN (05:18)
[2023-06-06] MEDS ORDERED: DICYCLOMINE HCL 10 MG CAPSULE PO PRN (05:18)
[2023-06-06] MEDS ORDERED: LOPERAMIDE HCL 2 MG CAPSULE PO PRN (05:18)
[2023-06-06] MEDS ORDERED: BENZOCAINE/MENTHOL (CHLORASEPTIC ) LOZENGE MM PRN (05:18)
[2023-06-06] MEDS ORDERED: LORazepam 1 MG TABLET PO PRN (05:21)
[2023-06-06] MEDS: LORazepam 2 MG TABLET PO SCH (05:48)
[2023-06-06] MEDS: MAG HYDROX/AL HYDROX/SIMETH 30 ML UNIT-DOSE CUP PO PRN (05:49)
[2023-06-06] MEDS: amLODIPine BESYLATE 10 MG TABLET (FP) PO SCH (10:27)
[2023-06-06] MEDS: FOLIC ACID 1 MG TABLET (FP) PO SCH (10:27)
[2023-06-06] MEDS: PRENATAL VITAMINS W/ FOLIC ACID TABLET (FP) PO SCH (10:27)
[2023-06-06] MEDS: CALCIUM (OYSTER SHELL) 500 MG TABLET (FP) PO SCH (11:05)
[2023-06-06] MEDS: ATENOLOL 25 MG TABLET (FP) PO SCH (11:05)
[2023-06-06] MEDS: ONDANSETRON *ODT* 4 MG TABLET SL PRN (11:10)
[2023-06-06] MEDS: levETIRAcetam 500 MG TABLET (FP) PO SCH (12:53)
[2023-06-06] MEDS: GABAPENTIN 300 MG CAPSULE PO SCH (13:37)
[2023-06-06] MEDS: IBUPROFEN 600 MG TABLET (FP) PO PRN (14:59)
[2023-06-06] MEDS: METHOCARBAMOL 500 MG TABLET PO PRN (17:31)
[2023-06-06] MEDS: MELATONIN 5 MG TABLETS PO SCH (22:20)
[2023-06-06] MEDS: THIAMINE 100 MG TABLET PO SCH (22:20)
[2023-06-06] MEDS: traZODone HCL 50 MG TABLET (FP) PO SCH (22:20)
[2023-06-07] MEDS: LORazepam 1 MG TABLET PO SCH (05:53)
[2023-06-07 08:25] LABS: POTASSIUM 3.6 mmol/L (3.5-5.1)
[2023-06-07 08:34] LABS: CALCIUM 8.5 mg/dL (8.5-10.1)
[2023-06-07 08:35] LABS: ALBUMIN 3.9 g/dl (3.4-5.0); BLOOD UREA NITROGEN 4.6 mg/dL (7-18)
[2023-06-07 08:38] LABS: CREATININE 0.6 mg/dL (0.55-1.3)
[2023-06-07 08:39] LABS: TOT PROT 6.9 g/dl (6.4-8.2)
[2023-06-07 08:40] LABS: BILIRUBIN,TOTAL 0.9 mg/dL (0.2-1)
[2023-06-07 08:44] LABS: HEMATOCRIT 33.2 % (32.4-45.2); HEMOGLOBIN 11.6 GM/dL (10.7-15.3); MCH 32.7 pg (25.7-33.7); MEAN CELL VOLUME 93.4 fl (80-96); MEAN PLT VOLUME 8.9 fl (7.5-11.1); PLATELET COUNT 42 10^3/uL (134-434); RBC 3.55 M/mm3 (3.60-5.2); RDW 13.4 % (11.6-15.6); WHITE BLOOD COUNT 3.6 K/mm3 (4.0-10.0)
[2023-06-07] MEDS: NALTREXONE HCL 50 MG TABLET PO SCH (10:53)
[2023-06-07] MEDS ORDERED: ACETAMINOPHEN 325 MG TABLET (FP) PO PRN (13:28)
[2023-06-08] MEDS ORDERED: LORazepam 0.5 MG TABLET PO PRN
[2023-06-08] MEDS: LORazepam 0.5 MG TABLET PO SCH (05:57)
[2023-06-08] MEDS: ATENOLOL 50 MG TABLET (FP) PO SCH (10:06)
[2023-06-08 10:30] VITALS: BP 149/96; PULSE 109; RESP 20; TEMP 97.7
[2023-06-09] MEDS ORDERED: LORazepam 0.5 MG TABLET PO ONE (05:00)
== END 2023-06-08 11:10 | disposition other institution (70) | DRG 775 ==
LOC: SUATTDRO 03:18 → YASAS 03:18 → Y6N 05:46
PROVIDERS: ADMIT Allergy & Immunology; ATTEND Registered Nurse
PROC: HZ2ZZZZ Detoxification Services for Substance Abuse Treatment (ICD-10-PCS; principal; 2023-06-06)
DX: F10.230 Alcohol dependence with withdrawal, uncomplicated (principal); F10.280 Alcohol dependence with alcohol-induced anxiety disorder; F10.282 Alcohol dependence with alcohol-induced sleep disorder; F10.24 Alcohol dependence with alcohol-induced mood disorder; F32.A Depression, unspecified; D69.6 Thrombocytopenia, unspecified; I10 Essential (primary) hypertension; J45.909 Unspecified asthma, uncomplicated; K70.9 Alcoholic liver disease, unspecified; R74.01 Elevation of levels of liver transaminase levels; R73.9 Hyperglycemia, unspecified; Z87.19 Personal history of other diseases of the digestive system; Z86.69 Personal history of other diseases of the nervous system and sense organs; Z87.891 Personal history of nicotine dependence
CPT/HCPCS: 36415; 80053; 80305; 80307; 81025; 83036; 84450; 85027; 86780; 87811; 93005; 93010; Q0162

== ENCOUNTER 2023-06-08 11:24 | Inpatient (IN) | payer OTHER ==
[2023-06-08] MEDS ORDERED: ACETAMINOPHEN 325 MG TABLET (FP) PO PRN (14:05)
[2023-06-08] MEDS ORDERED: NALOXONE HCL 0.4 MG/ML VIAL IVPUSH PRN (14:05)
[2023-06-08] MEDS ORDERED: NALOXONE (NYS OPIOID OVERDOSE PROGRAM) 4 MG/0.1 ML SPRAY NS PRN (14:05)
[2023-06-08] MEDS ORDERED: MAGNESIUM HYDROX 2400MG/30ML ORAL SUSPENSION 30 ML CUP PO PRN (14:05)
[2023-06-08] MEDS ORDERED: POLYETHYLENE GLYCOL (HEALTHYLAX) 3350 17 GM PACKET PO PRN (14:05)
[2023-06-08] MEDS ORDERED: BENZONATATE 200 MG CAPSULE PO PRN (14:05)
[2023-06-08] MEDS ORDERED: MAG HYDROX/AL HYDROX/SIMETH 30 ML UNIT-DOSE CUP PO PRN (14:05)
[2023-06-08] MEDS ORDERED: guaiFENesin 600 MG TABLET.ER (FP) PO PRN (14:05)
[2023-06-08] MEDS ORDERED: LOPERAMIDE HCL 2 MG CAPSULE PO PRN (14:05)
[2023-06-08] MEDS ORDERED: ONDANSETRON *ODT* 4 MG TABLET SL PRN (16:01)
[2023-06-08] MEDS: MELATONIN 5 MG TABLETS PO SCH (21:19)
[2023-06-08] MEDS: GABAPENTIN 300 MG CAPSULE PO SCH (21:19)
[2023-06-08] MEDS: traZODone HCL 50 MG TABLET (FP) PO SCH (21:19)
[2023-06-08] MEDS: THIAMINE 100 MG TABLET PO SCH (21:19)
[2023-06-08] MEDS: levETIRAcetam 500 MG TABLET (FP) PO SCH (21:19)
[2023-06-09] MEDS: amLODIPine BESYLATE 10 MG TABLET (FP) PO SCH (09:43)
[2023-06-09] MEDS: CALCIUM (OYSTER SHELL) 500 MG TABLET (FP) PO SCH (09:44)
[2023-06-09] MEDS: ATENOLOL 50 MG TABLET (FP) PO SCH (09:44)
[2023-06-09] MEDS: PRENATAL VITAMINS W/ FOLIC ACID TABLET (FP) PO SCH (09:44)
[2023-06-09] MEDS: FOLIC ACID 1 MG TABLET (FP) PO SCH (09:44)
[2023-06-09] MEDS: THIAMINE 100 MG TABLET PO SCH (09:46)
[2023-06-09 12:35] LABS: INR 0.98 (0.83-1.09); PROTHROMBIN TIME (PATIENT) 11.1 SEC (9.7-13.0)
[2023-06-09 12:36] LABS: POTASSIUM 3.6 mmol/L (3.5-5.1)
[2023-06-09 12:43] LABS: CALCIUM 9.7 mg/dL (8.5-10.1)
[2023-06-09 12:44] LABS: BLOOD UREA NITROGEN 10.5 mg/dL (7-18); MAGNESIUM 1.9 mg/dL (1.8-2.4)
[2023-06-09 12:47] LABS: CREATININE 0.5 mg/dL (0.55-1.3)
[2023-06-09 12:48] LABS: PH,URINE 6.5 (5.0-8.0); URINE APPEARANCE CLOUDY; URINE BILIRUBIN NEGATIVE (NEGATIVE); URINE COLOR YELLOW; URINE GLUCOSE (UA) NEGATIVE (NEGATIVE); URINE KETONE TRACE (NEGATIVE); URINE LEUK ESTERASE NEGATIVE (NEGATIVE); URINE NITRITE NEGATIVE (NEGATIVE); URINE PROTEIN NEGATIVE (NEGATIVE)
[2023-06-09 12:49] LABS: TOT PROT 7.4 g/dl (6.4-8.2)
[2023-06-09] MEDS: hydrOXYzine PAMOATE 25 MG CAPSULE (FP) PO PRN (13:14)
[2023-06-09] MEDS: METHOCARBAMOL 500 MG TABLET PO PRN (20:11)
[2023-06-10] MEDS: IBUPROFEN 600 MG TABLET (FP) PO PRN (09:39)
[2023-06-11] MEDS: LACTULOSE 20 GM/30 ML UDC (FOR ORAL USE ONLY) PO SCH (14:33)
[2023-06-12] MEDS: CHOLECALCIFEROL (VIT D3) 400 UNIT (10 MCG) TABLET PO SCH (09:59)
[2023-06-12] MEDS: MELATONIN 5 MG TABLETS PO SCH (22:10)
[2023-06-13] MEDS: IBUPROFEN 400 MG TABLET (FP) PO PRN (05:47)
[2023-06-13] MEDS: traZODone HCL 50 MG TABLET (FP) PO SCH (22:11)
[2023-06-15 06:57] VITALS: RESP 18
[2023-06-15] MEDS: GABAPENTIN 400 MG CAPSULE PO SCH (13:32)
[2023-06-16] MEDS: BENZOCAINE/MENTHOL (CHLORASEPTIC ) LOZENGE MM PRN (02:54)
[2023-06-16] MEDS: hydrOXYzine PAMOATE 50 MG CAPSULE (FP) PO PRN (04:49)
[2023-06-18 06:54] VITALS: TEMP 97.2
[2023-06-18 10:45] VITALS: BP 127/73; PULSE 81
[2023-06-18 12:46] LABS: POTASSIUM 4.3 mmol/L (3.5-5.1)
[2023-06-18 12:48] LABS: BLOOD UREA NITROGEN 12.5 mg/dL (7-18); CALCIUM 9.3 mg/dL (8.5-10.1)
[2023-06-18 12:49] LABS: ALBUMIN 3.7 g/dl (3.4-5.0)
[2023-06-18 12:52] LABS: CREATININE 0.7 mg/dL (0.55-1.3)
[2023-06-18 12:53] LABS: BILIRUBIN,TOTAL 0.3 mg/dL (0.2-1)
== END 2023-06-18 10:30 | disposition home or self-care (01) | DRG 772 ==
LOC: YASAS 11:24 → Y5N 11:26
PROVIDERS: ADMIT Allergy & Immunology; ATTEND Psychiatry & Neurology Pain Medicine
PROC: HZ42ZZZ Group Counseling for Substance Abuse Treatment, Cognitive-Behavioral (ICD-10-PCS; principal; 2023-06-08)
DX: F10.20 Alcohol dependence, uncomplicated (principal); F10.280 Alcohol dependence with alcohol-induced anxiety disorder; F41.9 Anxiety disorder, unspecified; F32.A Depression, unspecified; I10 Essential (primary) hypertension; J45.909 Unspecified asthma, uncomplicated; R74.8 Abnormal levels of other serum enzymes; K74.60 Unspecified cirrhosis of liver
CPT/HCPCS: 36415; 80053; 81003; 82140; 82306; 83735; 85610; 86704; 86706; 87517; 87522; 93005; 93010

== ENCOUNTER 2023-08-17 19:50 | Inpatient (IN) | payer OTHER ==
[2023-08-17 19:54] VITALS: BMI 22.8
[2023-08-17 21:31] LABS: BASO % 0.8 % (0-2.0); HEMATOCRIT 42.1 % (32.4-45.2); HEMOGLOBIN 14.5 GM/dL (10.7-15.3); LYMPH % 26.9 % (8-40); MCH 31.7 pg (25.7-33.7); MCHC 34.5 g/dl (32.0-36.0); MEAN PLT VOLUME 8.1 fl (7.5-11.1); MONO % 5.4 % (3.8-10.2); NEUT % 66.9 % (42.8-82.8); PLATELET COUNT 264 10^3/uL (134-434); RBC 4.57 M/mm3 (3.60-5.2); RDW 13.8 % (11.6-15.6); WHITE BLOOD COUNT 8.8 K/mm3 (4.0-10.0)
[2023-08-17] MEDS ORDERED: ACETAMINOPHEN INJECTION 100 ML IVPB ONE (21:48)
[2023-08-17] MEDS ORDERED: diazePAM CARPU-JECT 10 MG/2 ML DISP.SYRIN ONE (21:48)
[2023-08-17] MEDS: ACETAMINOPHEN 1000 MG/100 ML BAG IVPB ONE (21:55)
[2023-08-17] MEDS: diazePAM CARPU-JECT 10 MG/2 ML DISP.SYRIN IVPUSH ONE (21:55)
[2023-08-17 22:15] LABS: POTASSIUM 4.8 mmol/L (3.5-5.1)
[2023-08-17 22:18] LABS: ALBUMIN 4.6 g/dl (3.4-5.0); BLOOD UREA NITROGEN 5.6 mg/dL (7-18); CALCIUM 8.9 mg/dL (8.5-10.1); MAGNESIUM 2.3 mg/dL (1.8-2.4)
[2023-08-17 22:21] LABS: CREATININE 0.6 mg/dL (0.55-1.3)
[2023-08-17 22:23] LABS: BILIRUBIN,TOTAL 0.6 mg/dL (0.2-1); TOT PROT 9.2 g/dl (6.4-8.2)
[2023-08-17 23:10] LABS: HCG,QUALITATIVE URINE Negative; URINE APPEARANCE CLEAR; URINE BILIRUBIN NEGATIVE (NEGATIVE); URINE COLOR YELLOW; URINE GLUCOSE (UA) NEGATIVE (NEGATIVE); URINE KETONE NEGATIVE (NEGATIVE); URINE LEUK ESTERASE NEGATIVE (NEGATIVE); URINE NITRITE NEGATIVE (NEGATIVE); URINE PROTEIN TRACE (NEGATIVE); URINE UROBILINOGEN 0.2 mg/dL (0.2-1.0)
[2023-08-17 23:19] LABS: EPI CELLS 50.9 /uL (0-25.1); HYALINE CASTS 0.87 /uL (0-3.1); URINE BACTERIA 416.9 /uL (0-1359); URINE RBC 27.4 /uL (0-23.9); URINE WBC 19.1 /uL (0-25.8)
[2023-08-18] MEDS ORDERED: LORazepam 1 MG TABLET PO PRN (06:13)
[2023-08-18] MEDS ORDERED: LORazepam 2 MG TABLET PO SCH (06:30)
[2023-08-18] MEDS ORDERED: LORazepam 1 MG TABLET ONE ×3 (06:31→11:47)
[2023-08-18] MEDS: LORazepam 1 MG TABLET PO SCH (06:35)
[2023-08-18] MEDS ORDERED: ONDANSETRON 4 MG/2 ML VIAL IVPUSH PRN (07:29)
[2023-08-18] MEDS ORDERED: ACETAMINOPHEN 500 MG TABLET (FP) PO PRN (07:30)
[2023-08-18] MEDS: LACTATED RINGERS SOLUTION 1,000 ML/1,000 ML INFUS.BAG IV SCH (08:21)
[2023-08-18] MEDS ORDERED: hydrOXYzine PAMOATE 50 MG CAPSULE (FP) PO PRN (09:37)
[2023-08-18] MEDS ORDERED: ATENOLOL 50 MG TABLET (FP) ONE (10:05)
[2023-08-18] MEDS ORDERED: levETIRAcetam 500 MG TABLET (FP) PO ONE (10:06)
[2023-08-18] MEDS ORDERED: MULTIVITAMINS (DAILY MVI) TABLET (FP) ONE (10:06)
[2023-08-18] MEDS ORDERED: THIAMINE 100 MG TABLET ONE (10:06)
[2023-08-18] MEDS ORDERED: FOLIC ACID 1 MG TABLET (FP) ONE (10:06)
[2023-08-18] MEDS ORDERED: amLODIPine BESYLATE 10 MG TABLET (FP) ONE (10:06)
[2023-08-18] MEDS ORDERED: ENOXAPARIN NA (PORCINE) 40 MG/0.4 ML DISP.SYRIN SQ ONE (10:07)
[2023-08-18] MEDS: levETIRAcetam 500 MG TABLET (FP) PO SCH (10:53)
[2023-08-18] MEDS: THIAMINE 100 MG TABLET PO SCH (10:53)
[2023-08-18] MEDS: ENOXAPARIN NA (PORCINE) 40 MG/0.4 ML DISP.SYRIN SQ SCH (10:53)
[2023-08-18] MEDS: MULTIVITAMINS (DAILY MVI) TABLET (FP) PO SCH (10:53)
[2023-08-18] MEDS: amLODIPine BESYLATE 10 MG TABLET (FP) PO SCH (10:53)
[2023-08-18] MEDS: FOLIC ACID 1 MG TABLET (FP) PO SCH (10:53)
[2023-08-18] MEDS: CHOLECALCIFEROL (VIT D3) 400 UNIT (10 MCG) TABLET PO SCH (10:53)
[2023-08-18] MEDS: ATENOLOL 50 MG TABLET (FP) PO SCH (10:53)
[2023-08-18 11:04] VITALS: RESP 16
[2023-08-18 13:55] VITALS: BP 143/90; PULSE 80; TEMP 98.5
[2023-08-18] MEDS ORDERED: GABAPENTIN 400 MG CAPSULE PO SCH (14:00)
[2023-08-18] MEDS ORDERED: traZODone HCL 100 MG TABLET (FP) PO SCH (22:00)
[2023-08-19] MEDS ORDERED: LORazepam 1 MG TABLET PO SCH (05:00)
[2023-08-20] MEDS ORDERED: LORazepam 0.5 MG TABLET PO PRN
[2023-08-20] MEDS ORDERED: LORazepam 0.5 MG TABLET PO SCH (05:00)
[2023-08-21] MEDS ORDERED: LORazepam 0.5 MG TABLET PO ONE (05:00)
== END 2023-08-18 14:21 | disposition home or self-care (01) | DRG 775 ==
LOC: JER 19:50 → JERBED 08-18 05:03 → OBSVTOIN 08-18 07:24
PROVIDERS: ADMIT Internal Medicine; ATTEND Psychiatry & Neurology Pain Medicine
DX: F10.230 Alcohol dependence with withdrawal, uncomplicated (principal); K85.20 Alcohol induced acute pancreatitis without necrosis or infection; R56.9 Unspecified convulsions; I10 Essential (primary) hypertension; F41.9 Anxiety disorder, unspecified; F32.A Depression, unspecified; K74.60 Unspecified cirrhosis of liver; J45.909 Unspecified asthma, uncomplicated; R74.01 Elevation of levels of liver transaminase levels
CPT/HCPCS: 36415; 80053; 81003; 83735; 84703; 85025; 87086; 93005; 93010; 99285-25; G0378; J0131

== ENCOUNTER 2023-08-21 20:41 | Inpatient (IN) | payer OTHER ==
[2023-08-21 21:17] VITALS: BMI 24.3
[2023-08-21] MEDS ORDERED: hydrOXYzine PAMOATE 25 MG CAPSULE (FP) PO PRN (21:30)
[2023-08-21] MEDS ORDERED: BISMUTH SUBSALICYLATE 524 MG/30 ML PO PRN (21:30)
[2023-08-21] MEDS ORDERED: LOPERAMIDE HCL 2 MG CAPSULE PO PRN (21:30)
[2023-08-21] MEDS ORDERED: DICYCLOMINE HCL 10 MG CAPSULE PO PRN (21:30)
[2023-08-21] MEDS ORDERED: MAG HYDROX/AL HYDROX/SIMETH 30 ML UNIT-DOSE CUP PO PRN (21:30)
[2023-08-21] MEDS ORDERED: IBUPROFEN 400 MG TABLET (FP) PO PRN (21:30)
[2023-08-21] MEDS ORDERED: ONDANSETRON *ODT* 4 MG TABLET SL PRN (21:30)
[2023-08-21] MEDS ORDERED: BENZONATATE 200 MG CAPSULE PO PRN (21:30)
[2023-08-21] MEDS ORDERED: guaiFENesin 600 MG TABLET.ER (FP) PO PRN (21:30)
[2023-08-21] MEDS ORDERED: BENZOCAINE/MENTHOL (CHLORASEPTIC ) LOZENGE MM PRN (21:30)
[2023-08-21] MEDS: THIAMINE 100 MG TABLET PO SCH (22:51)
[2023-08-21] MEDS: chlordiazePOXIDE HCL 25 MG CAPSULE PO SCH (22:51)
[2023-08-21] MEDS: METHOCARBAMOL 500 MG TABLET PO PRN (22:51)
[2023-08-21] MEDS: MELATONIN 5 MG TABLETS PO SCH (22:51)
[2023-08-21] MEDS: levETIRAcetam 500 MG TABLET (FP) PO SCH (22:51)
[2023-08-21] MEDS: IBUPROFEN 600 MG TABLET (FP) PO PRN (22:57)
[2023-08-22] MEDS: amLODIPine BESYLATE 10 MG TABLET (FP) PO SCH (10:17)
[2023-08-22] MEDS: PRENATAL VITAMINS W/ FOLIC ACID TABLET (FP) PO SCH (10:17)
[2023-08-22] MEDS: FOLIC ACID 1 MG TABLET (FP) PO SCH (10:17)
[2023-08-22] MEDS: CHOLECALCIFEROL (VIT D3) 400 UNIT (10 MCG) TABLET PO SCH (10:17)
[2023-08-22] MEDS: ATENOLOL 50 MG TABLET (FP) PO SCH (11:15)
[2023-08-22 12:09] LABS: HEMATOCRIT 36.6 % (32.4-45.2); HEMOGLOBIN 12.6 GM/dL (10.7-15.3); MCH 32.1 pg (25.7-33.7); MCHC 34.5 g/dl (32.0-36.0); MEAN CELL VOLUME 93.1 fl (80-96); MEAN PLT VOLUME 9.2 fl (7.5-11.1); PLATELET COUNT 109 10^3/uL (134-434); RBC 3.93 M/mm3 (3.60-5.2); RDW 13.6 % (11.6-15.6)
[2023-08-22 12:11] LABS: POTASSIUM 3.4 mmol/L (3.5-5.1)
[2023-08-22 12:37] LABS: ALBUMIN 4.1 g/dl (3.4-5.0); BLOOD UREA NITROGEN 11.9 mg/dL (7-18); CALCIUM 9.2 mg/dL (8.5-10.1)
[2023-08-22 12:41] LABS: CREATININE 0.5 mg/dL (0.55-1.3)
[2023-08-22 12:42] LABS: BILIRUBIN,TOTAL 1.1 mg/dL (0.2-1); TOT PROT 7.5 g/dl (6.4-8.2)
[2023-08-22] MEDS: GABAPENTIN 400 MG CAPSULE PO SCH (13:11)
[2023-08-22] MEDS: chlordiazePOXIDE HCL 25 MG CAPSULE PO PRN (13:17)
[2023-08-22] MEDS ORDERED: traZODone HCL 100 MG TABLET (FP) PO SCH (22:00)
[2023-08-22] MEDS: traZODone HCL 50 MG TABLET (FP) PO SCH (22:19)
[2023-08-23] MEDS: chlordiazePOXIDE HCL 25 MG CAPSULE PO SCH (05:24)
[2023-08-23] MEDS: POTASSIUM CHLORIDE ORAL LIQUID 20 MEQ/15 ML PO SCH (14:53)
[2023-08-23] MEDS: ACETAMINOPHEN 325 MG TABLET (FP) PO PRN (17:30)
[2023-08-23] MEDS: traZODone HCL 100 MG TABLET (FP) PO SCH (22:19)
[2023-08-24] MEDS ORDERED: chlordiazePOXIDE HCL 10 MG CAPSULE PO PRN
[2023-08-24] MEDS: chlordiazePOXIDE HCL 10 MG CAPSULE PO SCH (05:28)
[2023-08-24] MEDS ORDERED: POTASSIUM CHLORIDE TABS 10 MEQ TABLET.ER (FP) PO SCH (14:00)
[2023-08-24] MEDS: POTASSIUM CHLORIDE ORAL LIQUID 20 MEQ/15 ML PO ONE (15:44)
[2023-08-25] MEDS: chlordiazePOXIDE HCL 10 MG CAPSULE PO SCH (06:02)
[2023-08-25] MEDS: hydrOXYzine PAMOATE 25 MG CAPSULE (FP) PO PRN (12:17)
[2023-08-25] MEDS: POLYETHYLENE GLYCOL (HEALTHYLAX) 3350 17 GM PACKET PO PRN (22:38)
[2023-08-26] MEDS: chlordiazePOXIDE HCL 10 MG CAPSULE PO ONE (05:27)
[2023-08-26] MEDS: MAGNESIUM HYDROX 2400MG/30ML ORAL SUSPENSION 30 ML CUP PO PRN (05:55)
[2023-08-27] MEDS: BISACODYL 5 MG TABLET.DR (FP) PO ONE (11:49)
[2023-08-27 14:23] VITALS: BP 100/60; PULSE 77; RESP 18; TEMP 97.8
== END 2023-08-27 13:47 | disposition other institution (70) | DRG 773 ==
LOC: YASAS 20:41 → Y3N 21:56
PROVIDERS: ADMIT Allergy & Immunology; ATTEND Surgery
PROC: HZ2ZZZZ Detoxification Services for Substance Abuse Treatment (ICD-10-PCS; principal; 2023-08-21)
DX: F10.230 Alcohol dependence with withdrawal, uncomplicated (principal); F11.20 Opioid dependence, uncomplicated; F19.24 Other psychoactive substance dependence with psychoactive substance-induced mood disorder; G40.909 Epilepsy, unspecified, not intractable, without status epilepticus; J45.909 Unspecified asthma, uncomplicated; K29.20 Alcoholic gastritis without bleeding; Z87.891 Personal history of nicotine dependence; Z62.810 Personal history of physical and sexual abuse in childhood
CPT/HCPCS: 36415; 80053; 80305; 80307; 81025; 85027; 86780; 87811

== ENCOUNTER 2023-10-12 08:18 | Inpatient (IN) | payer OTHER ==
[2023-10-12 08:50] VITALS: BMI 23.2
[2023-10-12] MEDS ORDERED: TRIMETHOBENZAMIDE HCL 200MG/2ML INJ IM ONE (09:01)
[2023-10-12] MEDS: LORazepam 2 MG/ML SDV VIAL IM ONE (09:10)
[2023-10-12] MEDS: TRIMETHOBENZAMIDE HCL 200MG/2ML INJ IM ONE (09:10)
[2023-10-12] MEDS ORDERED: BISMUTH SUBSALICYLATE 262 MG/15 ML BTL PO PRN (09:15)
[2023-10-12] MEDS ORDERED: POLYETHYLENE GLYCOL (HEALTHYLAX) 3350 17 GM PACKET PO PRN (09:15)
[2023-10-12] MEDS ORDERED: LOPERAMIDE HCL 2 MG CAPSULE PO PRN (09:15)
[2023-10-12] MEDS ORDERED: BENZONATATE 200 MG CAPSULE PO PRN (09:15)
[2023-10-12] MEDS ORDERED: guaiFENesin 600 MG TABLET.ER (FP) PO PRN (09:15)
[2023-10-12] MEDS ORDERED: DICYCLOMINE HCL 10 MG CAPSULE PO PRN (09:15)
[2023-10-12] MEDS ORDERED: MAGNESIUM HYDROX 2400MG/30ML ORAL SUSPENSION 30 ML CUP PO PRN (09:15)
[2023-10-12] MEDS ORDERED: MAG HYDROX/AL HYDROX/SIMETH 30 ML UNIT-DOSE CUP PO PRN (09:15)
[2023-10-12] MEDS ORDERED: IBUPROFEN 600 MG TABLET (FP) PO PRN (09:15)
[2023-10-12] MEDS ORDERED: IBUPROFEN 400 MG TABLET (FP) PO PRN (09:15)
[2023-10-12] MEDS ORDERED: ACETAMINOPHEN 325 MG TABLET (FP) PO PRN (09:15)
[2023-10-12] MEDS ORDERED: chlordiazePOXIDE HCL 25 MG CAPSULE ONE (10:21)
[2023-10-12] MEDS ORDERED: levETIRAcetam 500 MG TABLET (FP) PO ONE (10:21)
[2023-10-12] MEDS ORDERED: amLODIPine BESYLATE 5 MG TABLET (FP) ONE (10:21)
[2023-10-12] MEDS: levETIRAcetam 500 MG TABLET (FP) PO SCH (10:28)
[2023-10-12] MEDS: chlordiazePOXIDE HCL 25 MG CAPSULE PO SCH (10:28)
[2023-10-12] MEDS: amLODIPine BESYLATE 10 MG TABLET (FP) PO SCH (10:28)
[2023-10-12] MEDS: PRENATAL VITAMINS W/ FOLIC ACID TABLET (FP) PO SCH (10:29)
[2023-10-12] MEDS: FOLIC ACID 1 MG TABLET (FP) PO SCH (11:36)
[2023-10-12] MEDS: CHOLECALCIFEROL (VIT D3) 400 UNIT (10 MCG) TABLET PO SCH (11:36)
[2023-10-12] MEDS: METHOCARBAMOL 500 MG TABLET PO PRN (13:59)
[2023-10-12] MEDS: chlordiazePOXIDE HCL 25 MG CAPSULE PO PRN (14:34)
[2023-10-12] MEDS: ONDANSETRON *ODT* 4 MG TABLET SL PRN (19:20)
[2023-10-12] MEDS: THIAMINE 100 MG TABLET PO SCH (22:13)
[2023-10-12] MEDS: traZODone HCL 50 MG TABLET (FP) PO SCH (22:13)
[2023-10-12] MEDS: MELATONIN 5 MG TABLETS PO SCH (22:13)
[2023-10-13] MEDS: BENZOCAINE/MENTHOL (CHLORASEPTIC ) LOZENGE MM PRN (05:49)
[2023-10-13] MEDS: TRIMETHOBENZAMIDE HCL 200MG/2ML INJ IM ONE (12:17)
[2023-10-13 14:17] LABS: CHLORIDE 94 mmol/L (98-107); HEMATOCRIT 39.2 % (32.4-45.2); HEMOGLOBIN 13.7 GM/dL (10.7-15.3); MCH 31.1 pg (25.7-33.7); MEAN CELL VOLUME 88.9 fl (80-96); MEAN PLT VOLUME 8.4 fl (7.5-11.1); PLATELET COUNT 150 10^3/uL (134-434); RBC 4.41 M/mm3 (3.60-5.2); RDW 13.6 % (11.6-15.6); SODIUM 134 mmol/L (136-145); WHITE BLOOD COUNT 7.5 K/mm3 (4.0-10.0)
[2023-10-13 14:19] LABS: CALCIUM 8.9 mg/dL (8.5-10.1); POTASSIUM 2.9 mmol/L (3.5-5.1)
[2023-10-13 14:20] LABS: ANION GAP 12 mmol/L (4-13); BLOOD UREA NITROGEN 6.7 mg/dL (7-18); CO2 27 mmol/L (21-32); GLUCOSE,RANDOM 117 mg/dL (74-106)
[2023-10-13 14:23] LABS: CREATININE 0.8 mg/dL (0.55-1.3); SGOT/AST 110 U/L (15-37); SGPT/ALT 76 U/L (13-61)
[2023-10-13 14:24] LABS: BILIRUBIN,TOTAL 1.3 mg/dL (0.2-1)
[2023-10-13 14:25] LABS: TOT PROT 7.6 g/dl (6.4-8.2)
[2023-10-13 14:26] LABS: ALK PHOS 90 U/L (45-117)
[2023-10-13] MEDS: POTASSIUM CHLORIDE ORAL LIQUID 20 MEQ/15 ML PO ONE ×2 (15:01→21:30)
[2023-10-14] MEDS: chlordiazePOXIDE HCL 25 MG CAPSULE PO SCH (05:40)
[2023-10-14] MEDS: hydrOXYzine PAMOATE 25 MG CAPSULE (FP) PO PRN (14:32)
[2023-10-14 16:38] LABS: POTASSIUM 3.6 mmol/L (3.5-5.1)
[2023-10-14 16:39] LABS: BLOOD UREA NITROGEN 8.3 mg/dL (7-18); CALCIUM 9.2 mg/dL (8.5-10.1)
[2023-10-14 16:43] LABS: CREATININE 0.7 mg/dL (0.55-1.3)
[2023-10-15] MEDS: chlordiazePOXIDE HCL 10 MG CAPSULE PO SCH (06:00)
[2023-10-15] MEDS: hydrOXYzine PAMOATE 25 MG CAPSULE (FP) PO PRN (14:36)
[2023-10-15] MEDS: chlordiazePOXIDE HCL 10 MG CAPSULE PO PRN (14:37)
[2023-10-15 20:46] VITALS: RESP 16
[2023-10-16] MEDS: chlordiazePOXIDE HCL 10 MG CAPSULE PO SCH (05:37)
[2023-10-16 13:08] VITALS: BP 131/82; PULSE 87; TEMP 97.7
[2023-10-17] MEDS ORDERED: chlordiazePOXIDE HCL 10 MG CAPSULE PO ONE (05:00)
== END 2023-10-16 09:21 | disposition home or self-care (01) | DRG 775 ==
LOC: YASAS 08:18 → Y3N 09:48
PROVIDERS: ADMIT Allergy & Immunology; ATTEND Surgery
PROC: HZ2ZZZZ Detoxification Services for Substance Abuse Treatment (ICD-10-PCS; principal; 2023-10-12)
DX: F10.230 Alcohol dependence with withdrawal, uncomplicated (principal); F19.24 Other psychoactive substance dependence with psychoactive substance-induced mood disorder; F41.9 Anxiety disorder, unspecified; E87.6 Hypokalemia; G47.00 Insomnia, unspecified; I10 Essential (primary) hypertension; R11.2 Nausea with vomiting, unspecified; Z62.810 Personal history of physical and sexual abuse in childhood
CPT/HCPCS: 36415; 80048; 80053; 80305; 81025; 85027; Q0162

== ENCOUNTER 2023-11-13 12:12 | Inpatient (IN) | payer OTHER ==
[2023-11-13 13:09] VITALS: BMI 24.9
[2023-11-13] MEDS ORDERED: ACETAMINOPHEN 325 MG TABLET (FP) PO PRN (13:53)
[2023-11-13] MEDS ORDERED: LOPERAMIDE HCL 2 MG CAPSULE PO PRN (13:53)
[2023-11-13] MEDS ORDERED: BENZOCAINE/MENTHOL (CHLORASEPTIC ) LOZENGE MM PRN (13:53)
[2023-11-13] MEDS ORDERED: DICYCLOMINE HCL 10 MG CAPSULE PO PRN (13:53)
[2023-11-13] MEDS ORDERED: guaiFENesin 600 MG TABLET.ER (FP) PO PRN (13:53)
[2023-11-13] MEDS ORDERED: NICOTINE POLACRILEX 2 MG LOZENGE BC PRN (13:53)
[2023-11-13] MEDS ORDERED: BISMUTH SUBSALICYLATE 262 MG/15 ML BTL PO PRN (13:53)
[2023-11-13] MEDS ORDERED: BENZONATATE 200 MG CAPSULE PO PRN (13:53)
[2023-11-13] MEDS ORDERED: IBUPROFEN 400 MG TABLET (FP) PO PRN (13:53)
[2023-11-13] MEDS ORDERED: NICOTINE POLACRILEX 2 MG GUM BUC PRN (13:53)
[2023-11-13] MEDS ORDERED: ONDANSETRON *ODT* 4 MG TABLET ONE (14:22)
[2023-11-13] MEDS: ONDANSETRON *ODT* 4 MG TABLET SL PRN (14:23)
[2023-11-13] MEDS: METHOCARBAMOL 500 MG TABLET PO PRN (14:48)
[2023-11-13] MEDS: chlordiazePOXIDE HCL 25 MG CAPSULE PO PRN (14:48)
[2023-11-13] MEDS: chlordiazePOXIDE HCL 25 MG CAPSULE PO SCH (17:11)
[2023-11-13] MEDS: traZODone HCL 100 MG TABLET (FP) PO SCH (22:22)
[2023-11-13] MEDS: levETIRAcetam 500 MG TABLET (FP) PO SCH (22:22)
[2023-11-13] MEDS: MELATONIN 5 MG TABLETS PO SCH (22:22)
[2023-11-13] MEDS: THIAMINE 100 MG TABLET PO SCH (22:23)
[2023-11-14] MEDS: PRENATAL VITAMINS W/ FOLIC ACID TABLET (FP) PO SCH (10:26)
[2023-11-14] MEDS: amLODIPine BESYLATE 10 MG TABLET (FP) PO SCH (10:26)
[2023-11-14] MEDS: IBUPROFEN 600 MG TABLET (FP) PO PRN (10:31)
[2023-11-14] MEDS: MAG HYDROX/AL HYDROX/SIMETH 30 ML UNIT-DOSE CUP PO PRN (10:32)
[2023-11-14] MEDS: GABAPENTIN 400 MG CAPSULE PO SCH (13:24)
[2023-11-15] MEDS: chlordiazePOXIDE HCL 25 MG CAPSULE PO SCH (05:55)
[2023-11-15] MEDS: hydrOXYzine PAMOATE 25 MG CAPSULE (FP) PO PRN (19:12)
[2023-11-16] MEDS ORDERED: chlordiazePOXIDE HCL 10 MG CAPSULE PO PRN
[2023-11-16] MEDS: chlordiazePOXIDE HCL 10 MG CAPSULE PO SCH (05:45)
[2023-11-16] MEDS: CIPROFLOXACIN HCL 0.3% OPHTH 2.5ML BOTTLE OU SCH (10:33)
[2023-11-16] MEDS: MAGNESIUM HYDROX 2400MG/30ML ORAL SUSPENSION 30 ML CUP PO PRN (22:24)
[2023-11-17] MEDS: chlordiazePOXIDE HCL 10 MG CAPSULE PO SCH (05:53)
[2023-11-17] MEDS: POLYETHYLENE GLYCOL (HEALTHYLAX) 3350 17 GM PACKET PO PRN (17:35)
[2023-11-18] MEDS: chlordiazePOXIDE HCL 10 MG CAPSULE PO ONE (05:55)
[2023-11-18 21:09] VITALS: TEMP 97.9
[2023-11-19 06:33] VITALS: RESP 18
[2023-11-19 09:20] VITALS: BP 117/77; PULSE 83
== END 2023-11-19 09:34 | disposition home or self-care (01) | DRG 775 ==
LOC: YASAS 12:12 → Y3N 14:15 → Y6N 14:22
PROVIDERS: ADMIT Allergy & Immunology; ATTEND Surgery
PROC: HZ2ZZZZ Detoxification Services for Substance Abuse Treatment (ICD-10-PCS; principal; 2023-11-13)
DX: F10.230 Alcohol dependence with withdrawal, uncomplicated (principal); F17.210 Nicotine dependence, cigarettes, uncomplicated; F10.280 Alcohol dependence with alcohol-induced anxiety disorder; F10.24 Alcohol dependence with alcohol-induced mood disorder; F41.9 Anxiety disorder, unspecified; G40.909 Epilepsy, unspecified, not intractable, without status epilepticus; I10 Essential (primary) hypertension; H10.89 Other conjunctivitis; Z87.19 Personal history of other diseases of the digestive system
CPT/HCPCS: 36415; 80305; 80307; 81025; 84132; 84450; Q0162

== ENCOUNTER 2024-01-08 13:08 | Inpatient (IN) | payer OTHER ==
[2024-01-08 13:31] VITALS: BMI 24.9
[2024-01-08] MEDS ORDERED: BENZOCAINE/MENTHOL (CHLORASEPTIC ) LOZENGE MM PRN (13:43)
[2024-01-08] MEDS ORDERED: guaiFENesin 600 MG TABLET.ER (FP) PO PRN (13:43)
[2024-01-08] MEDS ORDERED: DICYCLOMINE HCL 10 MG CAPSULE PO PRN (13:43)
[2024-01-08] MEDS ORDERED: ACETAMINOPHEN 325 MG TABLET (FP) PO PRN (13:43)
[2024-01-08] MEDS ORDERED: LOPERAMIDE HCL 2 MG CAPSULE PO PRN (13:43)
[2024-01-08] MEDS ORDERED: MAG HYDROX/AL HYDROX/SIMETH 30 ML UNIT-DOSE CUP PO PRN (13:43)
[2024-01-08] MEDS ORDERED: IBUPROFEN 400 MG TABLET (FP) PO PRN (13:43)
[2024-01-08] MEDS ORDERED: BISMUTH SUBSALICYLATE 262 MG/15 ML BTL PO PRN (13:43)
[2024-01-08] MEDS ORDERED: BENZONATATE 200 MG CAPSULE PO PRN (13:43)
[2024-01-08] MEDS ORDERED: TRIMETHOBENZAMIDE HCL 200MG/2ML INJ IM ONE (14:27)
[2024-01-08] MEDS: TRIMETHOBENZAMIDE HCL 200MG/2ML INJ IM ONE (14:33)
[2024-01-08] MEDS ORDERED: levETIRAcetam 500 MG TABLET (FP) PO ONE (14:48)
[2024-01-08] MEDS ORDERED: chlordiazePOXIDE HCL 25 MG CAPSULE ONE (14:48)
[2024-01-08] MEDS: chlordiazePOXIDE HCL 25 MG CAPSULE PO ONE (14:51)
[2024-01-08] MEDS: levETIRAcetam 500 MG TABLET (FP) PO SCH (14:52)
[2024-01-08] MEDS: METHOCARBAMOL 500 MG TABLET PO PRN (17:25)
[2024-01-08] MEDS: chlordiazePOXIDE HCL 25 MG CAPSULE PO SCH (17:26)
[2024-01-08] MEDS: chlordiazePOXIDE HCL 25 MG CAPSULE PO PRN (19:55)
[2024-01-08] MEDS: IBUPROFEN 600 MG TABLET (FP) PO PRN (22:17)
[2024-01-08] MEDS: hydrOXYzine PAMOATE 25 MG CAPSULE (FP) PO PRN (22:18)
[2024-01-08] MEDS: THIAMINE 100 MG TABLET PO SCH (22:18)
[2024-01-08] MEDS: MELATONIN 5 MG TABLETS PO SCH (22:18)
[2024-01-08] MEDS: ONDANSETRON *ODT* 4 MG TABLET SL PRN (22:18)
[2024-01-09] MEDS ORDERED: GABAPENTIN 400 MG CAPSULE PO SCH (10:00)
[2024-01-09] MEDS: amLODIPine BESYLATE 10 MG TABLET (FP) PO SCH (10:16)
[2024-01-09] MEDS: PRENATAL VITAMINS W/ FOLIC ACID TABLET (FP) PO SCH (10:16)
[2024-01-09] MEDS: hydrOXYzine PAMOATE 50 MG CAPSULE (FP) PO PRN (10:20)
[2024-01-09] MEDS: GABAPENTIN 300 MG CAPSULE PO SCH (13:01)
[2024-01-09] MEDS: cloNIDine HCL 0.1 MG TABLET PO PRN (13:01)
[2024-01-09] MEDS: ACAMPROSATE CALCIUM 333 MG TABLET.DR PO SCH (14:08)
[2024-01-09] MEDS: traZODone HCL 100 MG TABLET (FP) PO SCH (22:26)
[2024-01-10] MEDS: chlordiazePOXIDE HCL 25 MG CAPSULE PO SCH (05:49)
[2024-01-10] MEDS ORDERED: LORazepam 1 MG TABLET PO PRN (11:10)
[2024-01-10] MEDS: LORazepam 2 MG TABLET PO SCH (17:31)
[2024-01-10] MEDS: cloNIDine HCL 0.1 MG TABLET PO PRN (22:06)
[2024-01-11] MEDS ORDERED: chlordiazePOXIDE HCL 10 MG CAPSULE PO PRN
[2024-01-11] MEDS ORDERED: chlordiazePOXIDE HCL 10 MG CAPSULE PO SCH (05:00)
[2024-01-11] MEDS: amLODIPine BESYLATE 10 MG TABLET (FP) PO SCH (05:51)
[2024-01-11] MEDS: LORazepam 1 MG TABLET PO SCH (05:51)
[2024-01-11] MEDS: METHOCARBAMOL 500 MG TABLET PO SCH (16:14)
[2024-01-12] MEDS ORDERED: LORazepam 0.5 MG TABLET PO PRN
[2024-01-12] MEDS ORDERED: chlordiazePOXIDE HCL 10 MG CAPSULE PO SCH (05:00)
[2024-01-12] MEDS: LORazepam 0.5 MG TABLET PO SCH (05:55)
[2024-01-13] MEDS ORDERED: chlordiazePOXIDE HCL 10 MG CAPSULE PO ONE (05:00)
[2024-01-13] MEDS: LORazepam 0.5 MG TABLET PO ONE (05:31)
[2024-01-13] MEDS: cloNIDine HCL 0.1 MG TABLET PO PRN (15:07)
[2024-01-13] MEDS: MAGNESIUM HYDROX 2400MG/30ML ORAL SUSPENSION 30 ML CUP PO PRN (22:36)
[2024-01-14 06:30] VITALS: TEMP 97.6
[2024-01-14 09:24] VITALS: BP 105/72; PULSE 88; RESP 18
[2024-01-14] MEDS: POLYETHYLENE GLYCOL (HEALTHYLAX) 3350 17 GM PACKET PO PRN (09:31)
== END 2024-01-14 10:46 | disposition other institution (70) | DRG 775 ==
LOC: YASAS 13:08 → Y6N 14:18
PROVIDERS: ADMIT Allergy & Immunology; ATTEND Surgery
PROC: HZ2ZZZZ Detoxification Services for Substance Abuse Treatment (ICD-10-PCS; principal; 2024-01-08)
DX: F10.230 Alcohol dependence with withdrawal, uncomplicated (principal); F12.20 Cannabis dependence, uncomplicated; F17.210 Nicotine dependence, cigarettes, uncomplicated; F10.280 Alcohol dependence with alcohol-induced anxiety disorder; F10.282 Alcohol dependence with alcohol-induced sleep disorder; F19.24 Other psychoactive substance dependence with psychoactive substance-induced mood disorder; I10 Essential (primary) hypertension; K70.10 Alcoholic hepatitis without ascites; R79.89 Other specified abnormal findings of blood chemistry
CPT/HCPCS: 36415; 80305; 80307; 81025; 84450; Q0162

== ENCOUNTER 2024-02-12 08:10 | Inpatient (IN) | payer OTHER ==
[2024-02-12 08:35] VITALS: BMI 22.6
[2024-02-12] MEDS ORDERED: ONDANSETRON *ODT* 4 MG TABLET SL PRN (08:44)
[2024-02-12] MEDS ORDERED: BISMUTH SUBSALICYLATE 524 MG/30 ML PO PRN (08:44)
[2024-02-12] MEDS ORDERED: BENZONATATE 200 MG CAPSULE PO PRN (08:44)
[2024-02-12] MEDS ORDERED: IBUPROFEN 400 MG TABLET (FP) PO PRN (08:44)
[2024-02-12] MEDS ORDERED: MAG HYDROX/AL HYDROX/SIMETH 30 ML UNIT-DOSE CUP PO PRN (08:44)
[2024-02-12] MEDS ORDERED: BENZOCAINE/MENTHOL (CHLORASEPTIC ) LOZENGE MM PRN (08:44)
[2024-02-12] MEDS ORDERED: guaiFENesin 600 MG TABLET.ER (FP) PO PRN (08:44)
[2024-02-12] MEDS ORDERED: NALOXONE (NARCAN) HCL 4 MG/0.1 ML SPRAY NS PRN (08:44)
[2024-02-12] MEDS ORDERED: POLYETHYLENE GLYCOL (HEALTHYLAX) 3350 17 GM PACKET PO PRN (08:44)
[2024-02-12] MEDS ORDERED: LOPERAMIDE HCL 2 MG CAPSULE PO PRN (08:44)
[2024-02-12] MEDS ORDERED: levETIRAcetam 500 MG TABLET (FP) PO ONE (09:05)
[2024-02-12] MEDS ORDERED: amLODIPine BESYLATE 5 MG TABLET (FP) ONE (09:06)
[2024-02-12] MEDS ORDERED: LORazepam 2 MG TABLET ONE (09:06)
[2024-02-12] MEDS ORDERED: PRENATAL VITAMINS W/ FOLIC ACID TABLET (FP) PO ONE (09:07)
[2024-02-12] MEDS: PRENATAL VITAMINS W/ FOLIC ACID TABLET (FP) PO SCH (09:11)
[2024-02-12] MEDS: amLODIPine BESYLATE 5 MG TABLET (FP) PO ONE (09:11)
[2024-02-12] MEDS: levETIRAcetam 500 MG TABLET (FP) PO ONE (09:11)
[2024-02-12] MEDS: LORazepam 2 MG TABLET PO ONE (09:11)
[2024-02-12] MEDS: levETIRAcetam 500 MG TABLET (FP) PO SCH (09:11)
[2024-02-12] MEDS: hydrOXYzine PAMOATE 25 MG CAPSULE (FP) PO PRN (10:24)
[2024-02-12] MEDS: METHOCARBAMOL 500 MG TABLET PO PRN (10:24)
[2024-02-12] MEDS: ACETAMINOPHEN 325 MG TABLET (FP) PO PRN (10:46)
[2024-02-12] MEDS: GABAPENTIN 300 MG CAPSULE PO SCH (14:15)
[2024-02-12] MEDS: IBUPROFEN 600 MG TABLET (FP) PO PRN (16:55)
[2024-02-12] MEDS: LORazepam 2 MG TABLET PO SCH (16:56)
[2024-02-12] MEDS: LORazepam 1 MG TABLET PO PRN (19:51)
[2024-02-12] MEDS: THIAMINE 100 MG TABLET PO SCH (22:23)
[2024-02-12] MEDS: busPIRone HCL 5 MG TABLET PO SCH (22:23)
[2024-02-12] MEDS: MELATONIN 5 MG TABLETS PO SCH (22:24)
[2024-02-12] MEDS: traZODone HCL 50 MG TABLET (FP) PO SCH (22:24)
[2024-02-13] MEDS: amLODIPine BESYLATE 10 MG TABLET (FP) PO SCH (10:26)
[2024-02-13 12:26] LABS: HEMATOCRIT 42.6 % (32.4-45.2); HEMOGLOBIN 14.3 GM/dL (10.7-15.3); MCH 30.9 pg (25.7-33.7); MCHC 33.6 g/dl (32.0-36.0); MEAN CELL VOLUME 92.2 fl (80-96); MEAN PLT VOLUME 9.6 fl (7.5-11.1); PLATELET COUNT 112 10^3/uL (134-434); RBC 4.62 M/mm3 (3.60-5.2); RDW 14.2 % (11.6-15.6); WHITE BLOOD COUNT 6.5 K/mm3 (4.0-10.0)
[2024-02-13 12:32] LABS: CALCIUM 9.9 mg/dL (8.5-10.1)
[2024-02-13 12:33] LABS: ALBUMIN 4.6 g/dl (3.4-5.0)
[2024-02-13 12:36] LABS: CREATININE 0.7 mg/dL (0.55-1.3)
[2024-02-13 12:38] LABS: BILIRUBIN,TOTAL 2.3 mg/dL (0.2-1); TOT PROT 8.2 g/dl (6.4-8.2)
[2024-02-13] MEDS: POTASSIUM CHLORIDE ORAL LIQUID 20 MEQ/15 ML PO ONE (15:57)
[2024-02-13] MEDS: LACTULOSE 20 GM/30 ML UDC (FOR ORAL USE ONLY) PO SCH (15:57)
[2024-02-13] MEDS: DICYCLOMINE HCL 10 MG CAPSULE PO PRN (20:01)
[2024-02-13] MEDS: MAGNESIUM HYDROX 2400MG/30ML ORAL SUSPENSION 30 ML CUP PO PRN (20:02)
[2024-02-14] MEDS: LORazepam 1 MG TABLET PO SCH (05:47)
[2024-02-14 11:00] LABS: POTASSIUM 4.1 mmol/L (3.5-5.1)
[2024-02-14 11:03] LABS: CALCIUM 9.6 mg/dL (8.5-10.1)
[2024-02-14 11:04] LABS: BLOOD UREA NITROGEN 9.8 mg/dL (7-18); CREATININE 0.8 mg/dL (0.55-1.3)
[2024-02-14] MEDS: traZODone HCL 100 MG TABLET (FP) PO SCH (22:14)
[2024-02-15] MEDS ORDERED: LORazepam 0.5 MG TABLET PO PRN
[2024-02-15] MEDS: LORazepam 0.5 MG TABLET PO SCH (05:35)
[2024-02-15] MEDS: cloNIDine HCL 0.1 MG TABLET PO PRN (05:36)
[2024-02-15 21:53] VITALS: RESP 16
[2024-02-16] MEDS: LORazepam 0.5 MG TABLET PO ONE (05:35)
[2024-02-16] MEDS ORDERED: NALOXONE (NYS OPIOID OVERDOSE PROGRAM) 4 MG/0.1 ML SPRAY NS PRN (08:00)
[2024-02-16 09:04] VITALS: BP 135/90; PULSE 110; TEMP 97.7
== END 2024-02-16 10:14 | disposition home or self-care (01) | DRG 775 ==
LOC: YASAS 08:10 → Y3N 09:31
PROVIDERS: ADMIT Allergy & Immunology; ATTEND Allergy & Immunology
PROC: HZ2ZZZZ Detoxification Services for Substance Abuse Treatment (ICD-10-PCS; principal; 2024-02-12)
DX: F10.230 Alcohol dependence with withdrawal, uncomplicated (principal); F17.210 Nicotine dependence, cigarettes, uncomplicated; F19.24 Other psychoactive substance dependence with psychoactive substance-induced mood disorder; F41.9 Anxiety disorder, unspecified; F32.A Depression, unspecified; I10 Essential (primary) hypertension; K29.20 Alcoholic gastritis without bleeding; K70.10 Alcoholic hepatitis without ascites; G47.00 Insomnia, unspecified; R79.89 Other specified abnormal findings of blood chemistry; R74.8 Abnormal levels of other serum enzymes; Z62.810 Personal history of physical and sexual abuse in childhood
CPT/HCPCS: 36415; 80048; 80053; 80305; 80307; 81025; 82140; 85027; 86780; 93005; 93010

== ENCOUNTER 2024-06-18 20:26 | Emergency (ER) | payer OTHER ==
[2024-06-18 20:31] VITALS: BMI 22.6
[2024-06-18] MEDS ORDERED: diazePAM 5 MG TABLET ONE (21:15)
[2024-06-18] MEDS ORDERED: ONDANSETRON 4 MG/2 ML VIAL ONE (21:16)
[2024-06-18 21:20] LABS: ABSOLUTE IMMATURE GRANULOCYTES 0.04 x10^3/uL (0.0-0.031); BASOPHILS # 0.11 x10^3/uL (0.01-0.08); HEMATOCRIT 42.4 % (34.1-44.9); HEMOGLOBIN 14.3 g/dL (11.2-15.7); MCHC 33.7 g/dl (32.2-35.5); MEAN CELL VOLUME 89.6 fl (79.4-94.8); MEAN PLT VOLUME 9.3 fl (9.4-12.3); MONOCYTE # 0.82 x10^3/uL (0.24-0.86); MONOCYTE % 7.3 % (4.7-12.5); PLATELET COUNT 266 x10^3/uL (182-369); RDW 13.2 % (12.1-16.8)
[2024-06-18] MEDS: ONDANSETRON 4 MG/2 ML VIAL IVPUSH ONE (21:25)
[2024-06-18] MEDS: SODIUM CHLORIDE 1,000 ML IV STA (21:25)
[2024-06-18] MEDS: diazePAM 5 MG TABLET PO ONE (21:25)
[2024-06-18 21:46] LABS: POTASSIUM 3.7 mmol/L (3.5-5.1)
[2024-06-18 21:48] LABS: ALBUMIN 4.4 g/dl (3.4-5.0); BLOOD UREA NITROGEN 14.2 mg/dL (7-18); CALCIUM 8.6 mg/dL (8.5-10.1)
[2024-06-18 21:52] LABS: CREATININE 0.6 mg/dL (0.55-1.3)
[2024-06-18 21:53] LABS: BILIRUBIN,TOTAL 0.6 mg/dL (0.2-1); TOT PROT 7.9 g/dl (6.4-8.2)
[2024-06-19 01:09] VITALS: BP 128/69; PULSE 90; RESP 16; TEMP 98.5
[2024-06-19] MEDS: SODIUM CHLORIDE 1,000 ML IV STA (01:16)
== END 2024-06-19 03:39 | disposition short-term general hospital (02) ==
LOC: JER 20:26
PROC: 3E033GC Introduction of Other Therapeutic Substance into Peripheral Vein, Percutaneous Approach (ICD-10-PCS; principal; 2024-06-18)
PROC: 3E0337Z Introduction of Electrolytic and Water Balance Substance into Peripheral Vein, Percutaneous Approach (ICD-10-PCS; 2024-06-18)
DX: F10.10 Alcohol abuse, uncomplicated (principal); R11.2 Nausea with vomiting, unspecified; R00.0 Tachycardia, unspecified
CPT/HCPCS: 36415; 80053; 80307; 85025; 99284-25

== ENCOUNTER 2024-06-19 04:06 | Inpatient (IN) | payer OTHER ==
[2024-06-19 04:25] VITALS: BMI 24.7
[2024-06-19] MEDS ORDERED: POLYETHYLENE GLYCOL (HEALTHYLAX) 3350 17 GM PACKET PO PRN (04:50)
[2024-06-19] MEDS ORDERED: LOPERAMIDE HCL 2 MG CAPSULE PO PRN (04:50)
[2024-06-19] MEDS ORDERED: chlordiazePOXIDE HCL 25 MG CAPSULE PO PRN (04:50)
[2024-06-19] MEDS ORDERED: NALOXONE (NARCAN) HCL 4 MG/0.1 ML SPRAY NS PRN (04:50)
[2024-06-19] MEDS ORDERED: BENZONATATE 200 MG CAPSULE PO PRN (04:50)
[2024-06-19] MEDS ORDERED: DICYCLOMINE HCL 10 MG CAPSULE PO PRN (04:50)
[2024-06-19] MEDS ORDERED: IBUPROFEN 400 MG TABLET (FP) PO PRN (04:50)
[2024-06-19] MEDS ORDERED: MAG HYDROX/AL HYDROX/SIMETH 30 ML UNIT-DOSE CUP PO PRN (04:50)
[2024-06-19] MEDS ORDERED: BENZOCAINE/MENTHOL (CHLORASEPTIC ) LOZENGE MM PRN (04:50)
[2024-06-19] MEDS ORDERED: MAGNESIUM HYDROX 2400MG/30ML ORAL SUSPENSION 30 ML CUP PO PRN (04:50)
[2024-06-19] MEDS ORDERED: BISMUTH SUBSALICYLATE 524 MG/30 ML PO PRN (04:50)
[2024-06-19] MEDS ORDERED: guaiFENesin 600 MG TABLET.ER (FP) PO PRN (04:50)
[2024-06-19] MEDS: chlordiazePOXIDE HCL 25 MG CAPSULE PO SCH (05:49)
[2024-06-19] MEDS: levETIRAcetam 500 MG TABLET (FP) PO SCH (10:33)
[2024-06-19] MEDS: amLODIPine BESYLATE 10 MG TABLET (FP) PO SCH (10:33)
[2024-06-19] MEDS: PRENATAL VITAMINS W/ FOLIC ACID TABLET (FP) PO SCH (10:33)
[2024-06-19] MEDS: IBUPROFEN 600 MG TABLET (FP) PO PRN (10:38)
[2024-06-19] MEDS: ACETAMINOPHEN 325 MG TABLET (FP) PO PRN (17:13)
[2024-06-19] MEDS: THIAMINE 100 MG TABLET PO SCH (22:15)
[2024-06-19] MEDS: MELATONIN 5 MG TABLETS PO SCH (22:15)
[2024-06-19] MEDS: hydrOXYzine PAMOATE 25 MG CAPSULE (FP) PO PRN (22:17)
[2024-06-20] MEDS: chlordiazePOXIDE HCL 25 MG CAPSULE PO SCH (05:30)
[2024-06-20] MEDS: busPIRone HCL 10 MG TABLET (FP) PO SCH (13:50)
[2024-06-20] MEDS: METHOCARBAMOL 750 MG TABLET PO PRN (13:51)
[2024-06-20] MEDS: ONDANSETRON *ODT* 4 MG TABLET SL PRN (19:30)
[2024-06-20] MEDS: GABAPENTIN 100 MG CAPSULE PO SCH (22:16)
[2024-06-20] MEDS: traZODone HCL 100 MG TABLET (FP) PO SCH (22:16)
[2024-06-21] MEDS ORDERED: chlordiazePOXIDE HCL 10 MG CAPSULE PO PRN
[2024-06-21] MEDS: chlordiazePOXIDE HCL 10 MG CAPSULE PO SCH (05:50)
[2024-06-22] MEDS: chlordiazePOXIDE HCL 10 MG CAPSULE PO SCH (05:29)
[2024-06-22] MEDS: LACTULOSE 20 GM/30 ML UDC (FOR ORAL USE ONLY) PO PRN (08:45)
[2024-06-22 09:15] VITALS: BP 128/75; PULSE 118; RESP 18; TEMP 96.8
[2024-06-23] MEDS ORDERED: chlordiazePOXIDE HCL 10 MG CAPSULE PO ONE (05:00)
== END 2024-06-22 09:30 | disposition home or self-care (01) | DRG 775 ==
LOC: YASAS 04:06 → Y3N 05:09
PROVIDERS: ADMIT Allergy & Immunology; ATTEND Allergy & Immunology
PROC: HZ2ZZZZ Detoxification Services for Substance Abuse Treatment (ICD-10-PCS; principal; 2024-06-19)
DX: F10.230 Alcohol dependence with withdrawal, uncomplicated (principal); F17.210 Nicotine dependence, cigarettes, uncomplicated; F19.24 Other psychoactive substance dependence with psychoactive substance-induced mood disorder; F41.9 Anxiety disorder, unspecified; F32.A Depression, unspecified; I10 Essential (primary) hypertension; K29.20 Alcoholic gastritis without bleeding; K76.0 Fatty (change of) liver, not elsewhere classified; K70.9 Alcoholic liver disease, unspecified; G47.00 Insomnia, unspecified; M54.50 Low back pain, unspecified; G89.29 Other chronic pain
CPT/HCPCS: 36415; 80305; 80307; 81025; 86780; 93005; 93010; Q0162